=== PATIENT | male | born 1975 ===

== ENCOUNTER 2021-07-11 09:05 | Outpatient (REF) | payer OTHER, SELFPAY ==
--- NOTE | 2021-07-11 09:00 | EEG_ITS ---
Left median and ulnar motor and sensory studies were performed. Left radial sensory study was performed and paraspinal muscles were tested. IMPRESSION: 1. [id number] left median neuropathy across carpal tunnel. 2. Mild left ulnar neuropathy across cubital tunnel. MD MAHENDRA Rossi/MILAGRO / [id number]
== END 2021-07-11 09:06 | disposition home or self-care (01) ==
LOC: HO.NEURO 09:05
PROVIDERS: Visit Provider Internal Medicine
DX: G56.02 Carpal tunnel syndrome, left upper limb (principal)
CPT/HCPCS: 95886; 95909

== ENCOUNTER 2022-04-23 11:44 | Outpatient (REF) | payer MEDICARE, MEDICAID, OTHER, SELFPAY ==
[2022-04-23 14:32] LABS: Alanine Aminotransferase 27 U/L (0-40); Albumin Level 4.7 g/dL (3.5-5.0); Alkaline Phosphatase 40 U/L (39-117); Anion Gap 12 (12-20); Aspartate Amino Transferase 16 U/L (5-37); Bilirubin Total 0.6 mg/dL (0.0-1.0); Blood Urea Nitrogen 17 mg/dL (9-16); Calcium 9.3 mg/dL (8.4-10.2); Carbon Dioxide 26 mmol/L (22-29); Chloride 106 mmol/L (96-108); Cholesterol 222 mg/dL; Estimated Glomerular Filt Rate > 60; Glucose Fasting 87 mg/dL (60-99); HDL Cholesterol 39 mg/dL; LDL Cholesterol Calculated 154 mg/dl; Potassium 4.2 mmol/L (3.3-5.1); Sodium 140 mmol/L (135-145); Total Protein 7.6 g/dL (6.5-8.0); Triglycerides 148 mg/dL
== END 2022-04-23 11:45 | disposition home or self-care (01) ==
LOC: HO.10HDL 11:44
PROVIDERS: Visit Provider Internal Medicine
DX: E78.00 Pure hypercholesterolemia, unspecified (principal); I10 Essential (primary) hypertension; G47.33 Obstructive sleep apnea (adult) (pediatric); Z72.0 Tobacco use; Z91.14 Patient's other noncompliance with medication regimen
CPT/HCPCS: 36415; 80053; 80061

== ENCOUNTER → 2023-03-06 10:22 | Outpatient (BNVA) | payer OTHER, SELFPAY | PROVIDERS: PCP Internal Medicine; Referring Provider Internal Medicine; Visit Provider Surgery | DX: L73.2 Hidradenitis suppurativa (principal) | CPT/HCPCS: 99202 ==

== ENCOUNTER 2023-04-02 09:41 | Outpatient (REF) | payer OTHER, SELFPAY ==
[2023-04-02 12:28] LABS: Alanine Aminotransferase 26 U/L (0-40); Albumin Level 4.4 g/dL (3.5-5.0); Alkaline Phosphatase 36 U/L (39-117); Anion Gap 10 (12-20); Aspartate Amino Transferase 17 U/L (5-37); Bilirubin Total 0.6 mg/dL (0.0-1.0); Blood Urea Nitrogen 17 mg/dL (9-16); Calcium 9.2 mg/dL (8.4-10.2); Carbon Dioxide 24 mmol/L (22-29); Chloride 110 mmol/L (96-108); Estimated Glomerular Filt Rate > 60; Glucose Random 112 mg/dL (60-115); Potassium 3.7 mmol/L (3.3-5.1); Sodium 140 mmol/L (135-145); Total Protein 7.9 g/dL (6.5-8.0)
[2023-04-03 05:37] LABS: HBc Num1 0.08 S/CO (0.00-0.79); HBsAGNum1 0.41 S/CO (0.00-0.99); Hepatitis A Antibody IgM 0.18 Index (0-0.79); Hepatitis B Core Antibody Nonreactive (Nonreactive); Hepatitis B Surface Antigen Negative (Negative); ~HepC Num1 0.08 S/CO (0.00-0.79); ~Hepatitis A Antibody IgM Nonreactive (Nonreactive); ~Hepatitis B Surface Antibody NONREACTIVE (Nonreactive); ~Hepatitis C Antibody Nonreactive (Nonreactive)
== END 2023-04-02 09:42 | disposition home or self-care (01) ==
LOC: HO.10HDL 09:41
PROVIDERS: Visit Provider Internal Medicine
DX: Z00.00 Encounter for general adult medical examination without abnormal findings (principal); I10 Essential (primary) hypertension; M54.50 Low back pain, unspecified; R74.01 Elevation of levels of liver transaminase levels; E78.9 Disorder of lipoprotein metabolism, unspecified
CPT/HCPCS: 36415; 80053; 86704; 86706; 86709; 86803; 87340

== ENCOUNTER → 2023-04-09 09:28 | Outpatient (BNVA) | payer OTHER, SELFPAY | PROVIDERS: PCP Internal Medicine; Visit Provider Surgery | DX: L73.2 Hidradenitis suppurativa (principal) | CPT/HCPCS: 99212 ==

== ENCOUNTER 2023-05-15 09:01 | Outpatient (REF) | payer OTHER, SELFPAY | END 2023-05-15 09:02 | disposition home or self-care (01) | LOC: HO.HOSX 09:01 | PROVIDERS: Visit Provider Orthopaedic Surgery | DX: Z13.89 Encounter for screening for other disorder (principal) ==

== ENCOUNTER 2023-06-11 09:35 | Outpatient (REF) | payer OTHER, SELFPAY ==
--- NOTE | 2023-06-11 09:38 | EMG_ITS ---
Bilateral median and ulnar motor and sensory studies were performed. Bilateral radial sensory studies were performed and paraspinal muscles were tested with a needle. IMPRESSION: Moderately severe bilateral median neuropathy across carpal tunnel. MD MAHENDRA Rossi/MILAGRO / [id number]
== END 2023-06-11 09:36 | disposition home or self-care (01) ==
LOC: HO.NEURO 09:35
PROVIDERS: PCP Internal Medicine; Visit Provider Internal Medicine
DX: G56.03 Carpal tunnel syndrome, bilateral upper limbs (principal); L73.2 Hidradenitis suppurativa
CPT/HCPCS: 95886; 95911; 99212

== ENCOUNTER 2023-06-11 15:01 | Outpatient (AMB) | payer OTHER, SELFPAY ==
--- NOTE | 2023-06-11 15:02 | A.OFFVIS_ITS ---
Intake Vital Signs 06/11/23 15:16 Height 5 ft 11 in Weight 233 lb 11.04 oz BMI 32.6 BP 120/80 Blood Pressure Location Lt brachial Position Sitting Pulse 72 Intake Visit Reasons: hidradenitis suppurativa, left axilla Intake Note: Patient is seen in office for follow up visit, following hidradenitis of the left axilla. Patient c/o: lumps in left axilla where inflamed last week, was given antibiotics has not started them, currently inflammation went down, still has pain, and other lumps around the groin area, is using the hibiclens with no relief Digital Cartographic Technician Required: Yes Digital Cartographic Technician Language: Chinese Language Professor Name: Maricarmen Rosales Information Interpreted: non-clinical & clinical Turbinated Bone Grinder: Turbinated Bone Grinder Present Accompanied by: Self / Same As Patient Allergies No Known Allergies [No Known Allergies*] Allergy (Unverified 06/11/23 15:12) Medication List - Last Reconciled 06/12/23 by John Reed MD chlorhexidine gluconate 4% (Hibiclens) 1 appl topical Q OTHER DAY 2 doses diclofenac sodium 75 mg PO BID duloxetine 60 mg PO DAILY losartan-hydrochlorothiazide 100-25 mg 1 tab PO DAILY metoprolol succinate ER 100 mg PO DAILY mirtazapine 30 mg PO BEDTIME mirtazapine 15 mg PO BEDTIME omeprazole 20 mg PO DAILY prazosin 5 mg PO BEDTIME prazosin 2 mg PO BEDTIME rosuvastatin 40 mg PO DAILY rosuvastatin 20 mg PO DAILY HPI HPI Comments History of Present Illness Details Patient returns for re-evaluation of bilateral axillary hidradenitis. He reports a recent infection in the right axilla which was initially quite painful and red but has subsequently subsided. He continues to feel a tender lump in the axilla but feels it has improved somewhat. He denies any bleeding or discharge from the site. He continues to use the Hibiclens but does not feel that is preventing new infections. He returns for really evaluation. [facility] Medical History High cholesterol HTN (hypertension) Social History Alcohol intake: current Alcohol intake frequency: holidays/special occasions only Alcohol type: beer Patient Tobacco Use Status: Current everyday Tobacco user Tobacco use type: Cigarette Cigarette Packs Per Day: 5 Review of Systems Const All systems reviewed & are unremarkable except as noted in HPI and below Skin/Breast Reports as per HPI and Reports erythema Physical Exam Vital Signs: Last Vital Signs Pulse 72 06/11/23 15:16 BP 120/80 06/11/23 15:16 BMI result Body Mass Index 32.6 Const General: no acute distress and well developed Nutritional Appearance: well nourished Orientation/consciousness: patient oriented x3 Limitations: no limitations Resp Effort & Inspection: normal respiratory effort, no audible wheezes, no cough and no respiratory distress Skin Other: Multiple areas of hidradenitis involving the axilla, inguinal and perianal regions. No significant disease is noted in the perianal skin occurring bilaterally with multiple scars identified from previous infections. No area of erythema or fluctuance is noted at this time. There is tenderness to palpation throughout bilateral buttocks. No active infections are noted in the groin or axilla. Neuro General: patient oriented x3 Extrem General: Yes no clubbing, cyanosis or edema Assessment & Plan Assessment & Plan (1) Hydradenitis: Code(s): L73.2 - Hidradenitis suppurativa Plan 48-year-old male patient presenting with chronic hidradenitis involving bilateral axilla and groins. There are currently no apparent abscess collection s but the patient is still very symptomatic for the recent inflammation. He would benefit from biologic therapy and therefore I recommended Dermatology evaluation. A referral has been sent for dermatology. He should follow up p.r.n.. Orders: Referrals Dermatology Referral L73.2 - Hidradenitis suppurativa Coding Level of Care Code Est Pt Level 3 (22480) Diagnoses Hydradenitis L73.2
[2023-06-11 15:16] VITALS: BP 120/80; PULSE 72; BMI 32.6
== END 2023-06-11 15:20 | disposition home or self-care (01) ==
PROVIDERS: PCP Internal Medicine; Visit Provider Surgery
DX: L73.2 Hidradenitis suppurativa (principal)
CPT/HCPCS: 99213

== ENCOUNTER 2023-06-26 10:34 | Outpatient (REF) | payer OTHER, SELFPAY ==
[2023-06-26 10:56] LABS: MANUAL DIFF FLAG NO
[2023-06-26 11:07] LABS: Basophils Absolute Auto 0.1 X10*3/uL (0.0-0.2); Basophils Percent Auto 0.7 % (0-2); Eosinophils Absolute Auto 0.3 X10*3/uL (0.0-0.4); Eosinophils Percent Auto 3.2 % (0-4); Hematocrit 46.2 % (42.0-52.0); Hemoglobin 15.8 g/dl (14.0-18.0); Imm Gran Abs Auto 0.04 X10*3/uL (0.00-0.03); Imm Gran Pct Auto 0.5 % (0.0-0.4); Lymphocytes Absolute Auto 2.6 X10*3/uL (1.2-4.9); Lymphocytes Percent Auto 31.6 % (20-40); Mean Corpuscular HGB Conc 34.2 g/dl (31.0-36.0); Mean Corpuscular Hemoglobin 31.2 pg (27.0-33.0); Mean Corpuscular Volume 91.3 fL (80.0-98.0); Mean Platelet Volume 10.7 fL (9.4-12.4); Monocytes Absolute Auto 0.7 X10*3/uL (0.1-1.2); Neutrophils Absolute Auto 4.5 x10*3/uL (2.0-8.3); Platelet Count 311 X10*3/uL (160-400); Red Blood Count 5.06 X10*6/uL (4.60-5.80); White Blood Count 8.2 X10*3/uL (4.8-10.8)
[2023-06-26 11:55] LABS: Alanine Aminotransferase 24 U/L (0-40); Albumin Level 4.3 g/dL (3.5-5.0); Alkaline Phosphatase 33 U/L (39-117); Anion Gap 10 (12-20); Aspartate Amino Transferase 17 U/L (5-37); Bilirubin Direct 0.1 mg/dL (0.0-0.5); Bilirubin Total 0.3 mg/dL (0.0-1.0); Blood Urea Nitrogen 14 mg/dL (9-16); Calcium 9.6 mg/dL (8.4-10.2); Carbon Dioxide 26 mmol/L (22-29); Chloride 107 mmol/L (96-108); Cholesterol 159 mg/dL (<200); Estimated Glomerular Filt Rate > 60; Glucose Random 102 mg/dL (60-115); HDL Cholesterol 35 mg/dL (>40); LDL Cholesterol Calculated 95 mg/dL (<100); Potassium 3.8 mmol/L (3.3-5.1); Sodium 139 mmol/L (135-145); Total Protein 7.4 g/dL (6.5-8.0); Triglycerides 146 mg/dL (<150)
[2023-06-27 04:19] LABS: HBS Num1 0.12 mIU/mL (0-7.99); HBc Num1 0.24 S/CO (0.00-0.79); HBsAGNum1 0.37 S/CO (0.00-0.99); Hepatitis B Core Antibody Nonreactive (Nonreactive); Hepatitis B Surface Antigen Negative (Negative); ~HepC Num1 0.06 S/CO (0.00-0.79); ~Hepatitis B Surface Antibody NONREACTIVE (Nonreactive); ~Hepatitis C Antibody Nonreactive (Nonreactive)
[2023-06-29 16:08] LABS: TS Negative Control Passed; TS Panel A 0; TS Panel B 0; TS Positive Control Passed; TSpotTB Negative (Negative)
== END 2023-06-26 10:35 | disposition home or self-care (01) ==
LOC: HO.10HDL 10:34
PROVIDERS: Absent Provider Internal Medicine; Visit Provider Physician Assistant Medical
DX: L73.2 Hidradenitis suppurativa (principal); E78.2 Mixed hyperlipidemia; G47.33 Obstructive sleep apnea (adult) (pediatric); G56.03 Carpal tunnel syndrome, bilateral upper limbs; I10 Essential (primary) hypertension; M25.512 Pain in left shoulder; Z72.0 Tobacco use
CPT/HCPCS: 36415; 80053; 80061; 82248; 85025; 86481; 86704; 86706; 86803; 87340

== ENCOUNTER 2023-07-14 14:24 | Outpatient (AMB) | payer OTHER, SELFPAY ==
--- NOTE | 2023-07-14 14:31 | MHC.OFFVIS ---
Intake Vital Signs 07/14/23 14:39 Height 5 ft 11 in Weight 242 lb BMI 33.7 BP 187/95 H Blood Pressure Location Lt brachial Position Sitting Pulse 97 Intake Visit Reasons: abscess of the buttock Intake Note: Patient is seen in office for follow up visit, following abscess of the buttock. Patient c/o: has an abscess of the buttock starts at the coccyx runs all the way down, was able to empty some of the abscess and it refilled 2 days later, uncomfortable to walk, sit or even use the toilet, currently not on antibiotics, did see a straw hat brusher for the axilla and is schedule to start a new medication Senior International Tax Manager Required: Yes Senior International Tax Manager Language: Dinking Machine Operator Name: Maricarmen LYLES Information Interpreted: non-clinical & clinical Physics Technician: Physics Technician Present Accompanied by: Family/Other Allergies No Known Allergies [No Known Allergies*] Allergy (Unverified 07/14/23 14:32) Medication List - Last Reconciled 07/14/23 by John Reed MD chlorhexidine gluconate 4% (Hibiclens) 1 appl topical Q OTHER DAY 2 doses diclofenac sodium 75 mg PO BID duloxetine 60 mg PO DAILY losartan-hydrochlorothiazide 100-25 mg 1 tab PO DAILY metoprolol succinate ER 100 mg PO DAILY mirtazapine 30 mg PO BEDTIME mirtazapine 15 mg PO BEDTIME omeprazole 20 mg PO DAILY prazosin 5 mg PO BEDTIME prazosin 2 mg PO BEDTIME rosuvastatin 40 mg PO DAILY rosuvastatin 20 mg PO DAILY HPI HPI Comments History of Present Illness Details 48-year-old male patient with previous history of skin abscesses now presenting with a skin abscess of the left buttock. This is been present for at least 2 months and has waxed and waned in pain and swelling. For the past 2 weeks however he has had increased pain and swelling with no discharge noted. He denies fever, chills, nausea or vomiting. He denies previous surgery at this location. He feels he may need an incision and drainage at the site. [facility] Medical History High cholesterol HTN (hypertension) Social History Alcohol intake: current Alcohol intake frequency: holidays/special occasions only Alcohol type: beer Patient Tobacco Use Status: Current everyday Tobacco user Tobacco use type: Cigarette Cigarette Packs Per Day: 5 Review of Systems Const All systems reviewed & are unremarkable except as noted in HPI and below Denies chills, Denies fever(s), Denies headache(s), Denies poor appetite and Denies weakness ENT Denies headache(s) Card Denies chest pain, Denies irregular heart rhythm, Denies palpitations and Denies dyspnea Resp Denies cough, Denies excessive phlegm production and Denies dyspnea GI Denies abdominal pain, Denies bloating, Denies change in bowel habits, Denies constipation, Denies heartburn, Denies diarrhea, Denies nausea and Denies vomiting Denies difficulty urinating and Denies urinary frequency Musc Denies back pain, Denies muscle weakness and Denies numbness Skin/Breast Denies changing lesions and Denies unusual bruising Neuro Denies headache(s), Denies numbness, Denies paresthesias and Denies weakness Psych Denies anxiety and Denies depression Endo Denies palpitations Umesh/Lymph Denies lymphadenopathy Physical Exam Vital Signs: Last Vital Signs Pulse 97 07/14/23 14:39 BP 187/95 H 07/14/23 14:39 BMI result Body Mass Index 33.7 Const General: cooperative and no acute distress Nutritional Appearance: well nourished Orientation/consciousness: patient oriented x3 Limitations: no limitations HEENT Head: Yes normocephalic and Yes atraumatic Ears: hearing grossly normal bilaterally Resp Effort & Inspection: normal respiratory effort, no audible wheezes, no cough and no respiratory distress Cardio Jugular venous distension: no JVD GI Other: Buttock left side with a large area of induration and abscess with fluctuance in the mid medial buttock measuring approximately 2 cm in diameter. Site is tender to palpation. Inspection: Yes normal to inspection Skin Other: Warm, dry, no rash Neuro General: patient oriented x3 Extrem General: Yes no clubbing, cyanosis or edema Office Procedures Incision and Drainage Details: Preoperative diagnosis: Abscess left buttock wall Postoperative diagnosis: Same Procedure: Incision and drainage abscess left buttock Surgeon: John Reed MD Social Media Coordinator: None Anesthesia: Lidocaine 1% with epi Indications for procedure: 48-year-old male with multiple skin cyst presenting with an abscess of the left buttock of several months duration. He reports increased pain and swelling the past week. On examination he was found to a palpable abscess in the medial left buttock Operative findings: Deep abscess in the left buttock Specimen: Wound culture Estimated blood loss: 5 mL Complications: None Procedure details: Patient was placed in a left lateral decubitus position. After assuring informed consent and confirming the site of surgery in the left medial buttock, the skin was prepped with Betadine and draped in a sterile fashion. Local anesthesia was then infiltrated in a transverse fashion over the abscess. An 11 blade was then used to incise the abscess. This was then further widened with a hemostat. Cultures were obtained. Wounds were then irrigated with saline solution. Wound was then packed with quarter-inch Nu Gauze. Dry sterile dressings were then applied. The patient tolerated the procedure well and was discharged to home in stable condition. Assessment & Plan Assessment & Plan (1) Abscess of buttock, left: Code(s): L02.31 - Cutaneous abscess of buttock Plan 48-year-old male patient presenting with an abscess of the left buttock causing pain for the past 2 months. On examination the patient does indeed have a palpable abscess measuring approximately 2 cm in diameter. Incision and drainage was performed today with production of purulent collection. Wound cultures were obtained. He will return in 1 week for wound check. Coding Level of Care Code New Pt Level 4 (50442) Diagnoses Abscess of buttock, left L02.31
[2023-07-14 14:39] VITALS: BP 187/95; PULSE 97; BMI 33.7
== END 2023-07-14 15:09 | disposition home or self-care (01) ==
PROVIDERS: PCP Internal Medicine; Referring Provider Internal Medicine; Visit Provider Surgery
DX: L02.31 Cutaneous abscess of buttock (principal)
CPT/HCPCS: 10060; 99214

== ENCOUNTER 2023-07-14 14:24 | Outpatient (REF) | payer OTHER, SELFPAY | END 2023-07-14 14:25 | disposition home or self-care (01) | LOC: HO.LNP 14:24 | PROVIDERS: PCP Internal Medicine; Referring Provider Internal Medicine; Visit Provider Surgery | DX: L02.31 Cutaneous abscess of buttock (principal) | CPT/HCPCS: 10060; 87070; 87205; 99212 ==

== ENCOUNTER 2023-07-23 08:56 | Outpatient (AMB) | payer OTHER, SELFPAY ==
--- NOTE | 2023-07-23 08:57 | MHC.OFFVIS ---
Intake Vital Signs 07/23/23 08:58 Height 5 ft 11 in Weight 240 lb BMI 33.5 BP 115/72 Blood Pressure Location Lt brachial Position Sitting Pulse 89 Intake Visit Reasons: Follow Up abscess of the buttock Intake Note: This patient of presents for a follow-up assessment status post I&D of abscess of the buttock. Patient c/o; reports draining. Customer Contact Specialist Required: Yes Customer Contact Specialist Language: Crib Pad Maker Name: Shahbaz Information Interpreted: non-clinical & clinical Accompanied by: Self / Same As Patient Allergies No Known Allergies [No Known Allergies*] Allergy (Unverified 07/23/23 09:05) HPI Follow Up abscess of the buttock HPI Details He had undergone I and D of a left buttock abscess by Dr. Reed last 07/21/2023. He is here for wound check He says he feels much better. He denies significant pain. He says he still has a little bit of drainage from the I&D site. [facility] Medical History High cholesterol HTN (hypertension) Social History Alcohol intake: current Alcohol intake frequency: holidays/special occasions only Alcohol type: beer Patient Tobacco Use Status: Current everyday Tobacco user Tobacco use type: Cigarette Cigarette Packs Per Day: 5 Review of Systems Const Denies chills and Denies fever(s) Card Denies chest pain, Denies dyspnea and Denies dyspnea on exertion Resp Denies cough, Denies dyspnea and Denies dyspnea on exertion GI Denies hematochezia and Denies change in bowel habits Denies hematuria and Denies difficulty urinating Musc Denies back pain and Denies limited range of motion Neuro Denies focal weakness and Denies convulsions Psych Denies depression and Denies mood swings Physical Exam Vital Signs: Last Vital Signs Pulse 89 07/23/23 08:58 BP 115/72 07/23/23 08:58 BMI result Body Mass Index 33.5 Const General: comfortable and no acute distress Back/Spine/Pelvis Other: I&D site on the left buttock with minimal residual induration, no fluctuance, no redness scanty discharge from the residual opening Assessment & Plan Assessment & Plan (1) Abscess of buttock, left: Code(s): L02.31 - Cutaneous abscess of buttock Plan: He had an I and D done by Dr. Reed last week. The site appears clean and healing well. The abscess cavity appears to be adequately drained He has completed his antibiotic treatment. He continue with current wound care. He can follow up with us on a p.r.n. basis He is also seeing the tube room cashier for his hidradenitis suppurative and will be started on Humira. Coding Level of Care Code Est Pt Level 2 (08962) Diagnoses Abscess of buttock, left L02.31
[2023-07-23 08:58] VITALS: BP 115/72; PULSE 89; BMI 33.5
== END 2023-07-23 09:17 | disposition home or self-care (01) ==
PROVIDERS: PCP Internal Medicine; Visit Provider Surgery
DX: L02.31 Cutaneous abscess of buttock (principal)
CPT/HCPCS: 99024

== ENCOUNTER → 2023-07-23 08:56 | Outpatient (BNVA) | payer OTHER, SELFPAY | PROVIDERS: PCP Internal Medicine; Visit Provider Surgery | DX: L02.31 Cutaneous abscess of buttock (principal) | CPT/HCPCS: 99212 ==

== ENCOUNTER 2023-10-14 09:42 | Outpatient (REF) | payer OTHER, SELFPAY | END 2023-10-14 09:43 | disposition home or self-care (01) | LOC: HO.LAB 09:42 | PROVIDERS: PCP Internal Medicine; Visit Provider Internal Medicine | DX: Z13.89 Encounter for screening for other disorder (principal) ==

== ENCOUNTER 2023-11-19 10:01 | Outpatient (REF) | payer OTHER, SELFPAY ==
[2023-11-19 10:29] LABS: MANUAL DIFF FLAG NO
[2023-11-19 10:49] LABS: Basophils Percent Auto 0.4 % (0-2); Eosinophils Absolute Auto 0.3 X10*3/uL (0.0-0.4); Eosinophils Percent Auto 2.3 % (0-4); Hematocrit 47.8 % (42.0-52.0); Hemoglobin 16.6 g/dl (14.0-18.0); Imm Gran Abs Auto 0.04 X10*3/uL (0.00-0.03); Imm Gran Pct Auto 0.4 % (0.0-0.4); Lymphocytes Absolute Auto 2.3 X10*3/uL (1.2-4.9); Lymphocytes Percent Auto 20.7 % (20-40); Mean Corpuscular HGB Conc 34.7 g/dl (31.0-36.0); Mean Corpuscular Hemoglobin 31.3 pg (27.0-33.0); Mean Platelet Volume 10.8 fL (9.4-12.4); Monocytes Absolute Auto 1.3 X10*3/uL (0.1-1.2); Monocytes Percent Auto 11.8 % (2-11); Neutrophils Absolute Auto 7.3 x10*3/uL (2.0-8.3); Neutrophils Percent Auto 64.4 % (45-73); Platelet Count 286 X10*3/uL (160-400); Red Blood Count 5.31 X10*6/uL (4.60-5.80); Red Cell Distribution Width 12.1 % (11.0-16.0); White Blood Count 11.3 X10*3/uL (4.8-10.8)
[2023-11-19 11:18] LABS: Alanine Aminotransferase 26 U/L (0-40); Albumin Level 4.5 g/dL (3.5-5.0); Alkaline Phosphatase 38 U/L (39-117); Anion Gap 12 (12-20); Aspartate Amino Transferase 18 U/L (5-37); Blood Urea Nitrogen 13 mg/dL (9-16); Calcium 10.1 mg/dL (8.4-10.2); Carbon Dioxide 28 mmol/L (22-29); Chloride 98 mmol/L (96-108); Cholesterol 155 mg/dL (<200); Estimated Glomerular Filt Rate > 60; Glucose Random 105 mg/dL (60-115); HDL Cholesterol 34 mg/dL (>40); LDL Cholesterol Calculated 96 mg/dL (<100); Potassium 3.4 mmol/L (3.3-5.1); Sodium 135 mmol/L (135-145); Total Protein 8.3 g/dL (6.5-8.0); Triglycerides 127 mg/dL (<150)
== END 2023-11-19 10:02 | disposition home or self-care (01) ==
LOC: HO.LAB 10:01
PROVIDERS: PCP Internal Medicine; Visit Provider Internal Medicine
DX: E78.2 Mixed hyperlipidemia (principal); G47.33 Obstructive sleep apnea (adult) (pediatric); G56.03 Carpal tunnel syndrome, bilateral upper limbs; I10 Essential (primary) hypertension; L73.2 Hidradenitis suppurativa; M25.512 Pain in left shoulder; Z72.0 Tobacco use
CPT/HCPCS: 36415; 80053; 80061; 85025

== ENCOUNTER 2024-02-12 10:17 | Outpatient (AMB) | payer OTHER, SELFPAY ==
--- NOTE | 2024-02-12 10:23 | MHC.OFFVIS ---
Vital Signs 02/12/24 10:29 Height 5 ft 11 in Weight 240 lb BMI 33.5 BP 135/86 Blood Pressure Location Lt brachial Position Sitting Pulse 114 H Intake Visit Reasons: recurrent abscess of the buttock Intake Note: Patient is seen in office for recurrent abscess of the buttock. Pt c/o: continued abscess of the buttock, was I&D last visit and 2 days later filled back up with fluid, feels there is a lump inside that needs to be removed, has another one in the left armpit, is red and inflamed, and another in the groin area, is schedule to see a Licensed Funeral Director 03/17/24 Nutrition Services Aide Required: Yes Nutrition Services Aide Language: Alumina Plant Supervisor Name: Maricarmen LYLES Information Interpreted: non-clinical & clinical Manager Of Allied Health Services: Manager Of Allied Health Services Present Accompanied by: Self / Same As Patient Allergies No Known Allergies [No Known Allergies*] Allergy (Unverified 02/12/24 10:29) Medication List - Last Reconciled 02/12/24 by John Reed MD chlorhexidine gluconate 4% (Hibiclens) 1 appl topical Q OTHER DAY 2 doses diclofenac sodium 75 mg PO BID duloxetine 60 mg PO DAILY losartan-hydrochlorothiazide 100-25 mg 1 tab PO DAILY metoprolol succinate ER 100 mg PO DAILY mirtazapine 30 mg PO BEDTIME mirtazapine 15 mg PO BEDTIME omeprazole 20 mg PO DAILY prazosin 5 mg PO BEDTIME prazosin 2 mg PO BEDTIME rosuvastatin 40 mg PO DAILY rosuvastatin 20 mg PO DAILY HPI Comments Details: Patient presents with multiple cutaneous skin lesions including his left axilla, bilateral groins, buttocks and perineal skin. He is able to squeeze the lesion in the axilla and buttock to produce some cloudy fluid. He denies any fever or chills. He previously underwent incision and drainage of the buttock lesion and a quickly returned. He is due to see dermatology (Dr. Larry) soon and has been using the Hibiclens scrub with mixed results. [facility] Medical History High cholesterol HTN (hypertension) Social History Alcohol intake: current Alcohol intake frequency: holidays/special occasions only Alcohol type: beer Patient Tobacco Use Status: Current everyday Tobacco user Tobacco use type: Cigarette Cigarette Packs Per Day: 5 Review of Systems Const All systems reviewed & are unremarkable except as noted in HPI and below Denies chills, Denies fever(s), Denies headache(s), Denies poor appetite and Denies weakness ENT Denies headache(s) Card Denies chest pain, Denies irregular heart rhythm, Denies palpitations and Denies dyspnea Resp Denies cough, Denies excessive phlegm production and Denies dyspnea GI Denies abdominal pain, Denies bloating, Denies change in bowel habits, Denies constipation, Denies heartburn, Denies diarrhea, Denies nausea and Denies vomiting Denies difficulty urinating and Denies urinary frequency Musc Denies back pain, Denies muscle weakness and Denies numbness Skin/Breast Denies changing lesions and Denies unusual bruising Neuro Denies headache(s), Denies numbness, Denies paresthesias and Denies weakness Psych Denies anxiety and Denies depression Endo Denies palpitations Umesh/Lymph Denies lymphadenopathy Physical Exam Vital Signs: Last Vital Signs Pulse 114 H 02/12/24 10:29 BP 135/86 02/12/24 10:29 BMI result Body Mass Index 33.5 Const General: cooperative and no acute distress Nutritional Appearance: well nourished Orientation/consciousness: patient oriented x3 Limitations: no limitations HEENT Head: Yes normocephalic and Yes atraumatic Ears: hearing grossly normal bilaterally Chest Other: Left axilla with 2 areas of previous incision and drainage with no erythema appreciated. There is some chronic inflammation noted with underlying phlegmon. No definite abscess appreciated. Resp Effort & Inspection: normal respiratory effort, no audible wheezes, no cough and no respiratory distress Cardio Jugular venous distension: no JVD GI Other: Left buttock with a prior incision and drainage with palpable inflammation below the skin. There is diffuse skin changes noted throughout the buttock and perineum and groin suggestive of hidradenitis. No definite abscess noted at this time and no skin erythema appreciated. Inspection: Yes normal to inspection Skin Other: As noted in GI above. Neuro General: patient oriented x3 Extrem General: Yes no clubbing, cyanosis or edema Assessment & Plan Assessment & Plan (1) Abscess of buttock, left: Code(s): L02.31 - Cutaneous abscess of buttock Category: Medical (2) Hydradenitis: Code(s): L73.2 - Hidradenitis suppurativa Category: Medical Plan 49-year-old male patient presenting with evidence of hidradenitis in multiple locations and diffuse skin changes which may best be treated by Dermatology. I recommended proceeding to the Dermatology evaluation with follow-up based on their recommendations. Coding Level of Care Code Est Pt Level 3 (40749) Diagnoses Abscess of buttock, left L02.31 Hydradenitis L73.2
[2024-02-12 10:29] VITALS: BP 135/86; PULSE 114; BMI 33.5
== END 2024-02-12 10:39 | disposition home or self-care (01) ==
PROVIDERS: PCP Internal Medicine; Visit Provider Surgery
DX: L02.31 Cutaneous abscess of buttock (principal); L73.2 Hidradenitis suppurativa
CPT/HCPCS: 99213

== ENCOUNTER → 2024-02-12 10:17 | Outpatient (BNVA) | payer OTHER, SELFPAY | PROVIDERS: PCP Internal Medicine; Visit Provider Surgery | DX: L02.31 Cutaneous abscess of buttock (principal); L73.2 Hidradenitis suppurativa; Z98.890 Other specified postprocedural states | CPT/HCPCS: 99212 ==

== ENCOUNTER 2024-03-17 10:55 | Emergency (ER) | payer OTHER, SELFPAY ==
--- NOTE | ~2024-03-17 | CT_ITS ---
EXAMINATION: CT ABDOMEN AND PELVIS WITH CONTRAST CLINICAL INFORMATION: Right groin abscess, buttock abscess, hematuria. COMPARISON: None available. TECHNIQUE: Multidetector volumetric images were obtained from the superior aspect of the liver through the pubic symphysis following administration 85 mL of Omnipaque 350 intravenous contrast. Sagittal and coronal reformatted images were obtained on the technologist's workstation. Oral contrast: No This CT examination was performed using dose optimization techniques as appropriate, variously including the following: *Automated exposure control *Adjustment of mA and/or kV according to patient size (this includes techniques or standardized protocols for targeted exams where dose is matched to indication/reason for exam; i.e. extremities or head) *Use of iterative reconstruction technique DLP: 750 mGy-cm FINDINGS: LUNG BASES: The visualized lung bases are unremarkable. LIVER, GALLBLADDER, AND BILIARY TREE: Multiple too small to characterize liver hypodensities, the majority not significantly changed compared to 05/20/2021, although a hypodensity in the caudate lobe (3:23) was not definitely seen previously. Liver is normal in size, morphology and density. Redemonstration of a punctate calcification in the right hepatic lobe. Hyperdense gallbladder sludge/stones. No evidence of gallbladder wall thickening nor significant pericholecystic inflammatory changes. No biliary ductal dilatation. PANCREAS: Stable punctate calcification in the pancreatic tail. No main ductal dilatation. No peripancreatic inflammatory changes.. SPLEEN: Unremarkable. ADRENAL GLANDS: Unremarkable. KIDNEYS AND URETERS: The kidneys are normal in size, shape, and attenuation. No hydronephrosis, hydroureter, or calculi seen. No perinephric stranding. BLADDER: Unremarkable. GASTROINTESTINAL TRACT: The stomach and the small bowel are nondilated. Normal appendix. Mild colonic diverticulosis without significant pericolonic inflammatory changes. No evidence of bowel obstruction. ABDOMINAL WALL: No significant hernia is appreciated. LYMPH NODES: Borderline enlarged periportal and retroperitoneal lymph nodes are stable. Pelvic and inguinal lymphadenopathy is slightly increased compared to 05/20/2021. Unchanged mild fatty haziness of the central small bowel mesentery. VASCULAR: Normal caliber of the abdominal aorta. PELVIC VISCERA: There is a 5.3 x 1.9 cm rim enhancing centrally low density collection in the superficial soft tissues of the left intergluteal region (3:99) with mild surrounding fat stranding most consistent with an abscess. Bilateral scrotal sac anasarca/edema. OSSEOUS STRUCTURES: Degenerative changes of the spine. No acute or aggressive appearing osseous findings. CT/CT abdomen pelvis w IV con IMPRESSION: 1. There is a 5.3 cm rim enhancing centrally low density collection in the superficial soft tissues of the left intergluteal region with mild surrounding fat stranding most consistent with an abscess. Recommend clinical correlation and attention on follow-up to ensure resolution. 2. Multiple too small to characterize liver hypodensities, the majority of which are not significantly changed compared to 05/20/2021, although a hypodensity in the caudate lobe was not definitely seen previously. Statistically, these are favored to represent cysts or hemangiomas, however definite characterization with an outpatient abdominal MRI with and without IV contrast is recommended, 3. Cholelithiasis but no evidence of acute cholecystitis. 4. Diverticulosis but no evidence of acute diverticulitis. 5. Bilateral scrotal sac anasarca/edema, correlate with physical examination. 6. Increased size of pelvic and inguinal lymph nodes, most likely reactive in nature. Recommend attention follow-up in future examinations.
[2024-03-17 11:11] VITALS: BP 141/82; PULSE 78; RESP 18; TEMP 36.6; O2SAT 98; BMI 34.2
--- NOTE | 2024-03-17 11:11 | ED.SKABFB ---
HPI - Skin/Abscess/Foreign Bdy General Chief complaint: Wound/Laceration Stated complaint: Sent by Dr High abscess Time Seen by Provider: 03/17/24 12:17 Source: patient and RN notes reviewed Mode of arrival: ambulatory Limitations: no limitations History of Present Illness ED Provider: Ana Luisa Elder PA-C HPI narrative: This is a 49-year-old male, with a history of recurrent abscesses on buttocks and groin, hypertension and hyperlipidemia, who presents emergency department with complaints of right groin swelling and left buttocks swelling. Patient states that yesterday he noticed increased swelling in his right groin and states that this area started to drain yesterday. He states that this has happened to him in the past. However he woke up this morning and noticed right testicular pain and swelling. He endorses subjective and chills. Was seen by Dr. Breen surgeon beginning of February, who referred him to dermatology due to recurrent abscesses, there has no abscess appreciated at that time. He states that he has had multiple incisions and drainage procedures performed over the years due to recurrent abscesses. He is sexually active with his partner, no concerns for any sexually transmitted infections. He does endorse blood in his urine which she just noticed this afternoon. No urinary urgency or frequency. No other complaints or concerns this time MD complaint: abscess/boil Onset (ago): day(s) Tetanus up to date: unsure Relieving factors: none Exacerbating factors: none Context: none Associated symptoms: fever (Subjective) and chills Treatments prior to arrival: none Related Data Home Medications ?Medication ?Instructions ?Recorded ?Confirmed diclofenac sodium 75 mg 75 mg PO BID 04/09/23 03/29/24 tablet,delayed release duloxetine 60 mg capsule,delayed 60 mg PO DAILY 04/09/23 03/29/24 release losartan 100 1 tab PO DAILY 04/09/23 03/29/24 mg-hydrochlorothiazide 25 mg tablet metoprolol succinate 100 mg 100 mg PO DAILY 04/09/23 03/29/24 tablet,extended release 24 hr mirtazapine 15 mg tablet 15 mg PO BEDTIME depressive 04/09/23 03/29/24 disorder mirtazapine 30 mg tablet 30 mg PO BEDTIME 04/09/23 03/29/24 omeprazole 20 mg capsule,delayed 20 mg PO DAILY 04/09/23 03/29/24 release prazosin 2 mg capsule 2 mg PO BEDTIME 04/09/23 03/29/24 prazosin 5 mg capsule 5 mg PO BEDTIME 04/09/23 03/29/24 rosuvastatin 20 mg tablet 20 mg PO DAILY 04/09/23 03/29/24 rosuvastatin 40 mg tablet 40 mg PO DAILY 04/09/23 03/29/24 Previous Rx's ?Medication ?Instructions ?Recorded chlorhexidine gluconate 4 % 1 appl topical Q OTHER DAY 2 doses 03/06/23 topical liquid (Hibiclens) #3,800 mL amoxicillin 875 mg-potassium 1 tab PO BID 10 days #20 tabs 03/17/24 clavulanate 125 mg tablet Allergies Allergy/AdvReac Type Severity Reaction Status Date / Time No Known Allergies Allergy Verified 03/29/24 11:44 [No Known Allergies*] Review of Systems Review of Systems: Yes all other systems are reviewed and are negative Constitutional: Constitutional: Reports as per [facility] Past Medical History Medical History High cholesterol HTN (hypertension) Social History Social History Alcohol intake: current Alcohol intake frequency: holidays/special occasions only Alcohol type: beer Patient Tobacco Use Status: Current everyday Tobacco user Tobacco use type: Cigarette Cigarette Packs Per Day: 5 Physical Exam Vital Signs: Vital Signs: Last Vital Signs Temp 98.5 F 03/17/24 22:22 Pulse 73 03/17/24 22:22 Resp 18 03/17/24 22:22 BP 131/67 03/17/24 22:22 Pulse Ox 97 03/17/24 22:22 O2 Del Method Room Air 03/17/24 22:22 BMI result Body Mass Index 34.2 Const: General: cooperative, comfortable and no acute distress Orientation/consciousness: patient oriented x3 Limitations: no limitations HEENT: Head: Yes normal to inspection, Yes normocephalic and Yes atraumatic Ears: hearing grossly normal bilaterally General nose exam: Normal external nose present Face and sinus: Yes normal facial exam Mouth: Normal oral and palatal mucosa present, oropharynx normal and moist mucous membranes Throat: Yes posterior oropharynx normal Eyes: General: appearance normal, both eyes and all related structures Eyelids: Yes eyelids normal Conjunctivae: conjunctivae normal Sclerae: sclerae normal Pupils: Equal, round and reactive pupils present EOM: EOMs intact bilaterally Neck: Neck: Yes normal visual inspection, Yes full ROM and Yes no lymphadenopathy Lymphatic: no lymphadenopathy noted Chest: Chest palpation & inspection: normal inspection of the chest Resp: Effort & Inspection: normal respiratory effort and able to speak in complete sentences Auscultation: clear to auscultation bilaterally, no crackles, no rales, no rhonchi and no wheezes Cardio: Rate: regular rate Rhythm: regular rhythm Heart sounds: S1 normal heart sound present and S2 normal heart sound present GI: Inspection: Yes normal to inspection : Other: examination performed with Tech present at all times. Penile and scrotal edema noted, mild inrudation on the right, nontender, no overlying erythema or warmth. No palpable mass or abscess appreciated. Skin: Other: Left buttocks with 4 x 4 cm tender fluctuant mass noted, no surrounding erythema or warmth noted. General skin exam: no rashes or lesions noted Trauma: no lacerations or abrasions Wounds: no wounds Neuro: General: patient oriented x3 and moves all extremities Cranial nerves: Yes Equal, round and reactive pupils present Extrem: General: Yes normal to inspection Right upper extremity: normal to inspection Left upper extremity: normal to inspection Right lower extremity: normal to inspection Left lower extremity: normal to inspection Course Course Course Narrative: This is a Rapid Medical Examination (RME) performed by Leigh Betancourt PA-C in triage. Full HPI, ROS, assessment and treatment plan per primary provider in the Main ED. 49 yo male, hx of HTN, HDL, and chronic left buttock abscess here for eval of abscess to left buttock x years. He currently follows with Dr. Reed for this with multiple I&Ds. Last seen on 02/12/24. Reports increasing pain to the area which began this morning, prompting him to come in for eval. also endorses abscess to right groin, drained yesterday, now increasingly swollen. admits to subjective fevers. afebrile in triage. exam limited in triage d/t patient being clothed along with privacy concerns. plan for further physical examination once patient is pulled back to an ED bed. Plan: basic labs & UA ordered. Reevaluation(s) Reevaluation #1: CT returns, revealing a 5.3 cm rim enhancing centrally low-density collection in the superficial soft tissues of the left intra uterine region with mild surrounding fat stranding most consistent with an abscess. There also liver hypodensities not significantly changed since May 31, 2021 however there is a hypodensity in the caudate lobe that was not seen previously, favored to represent sister hemangiomas however will likely need abdominal MRI with and without IV contrast outpatient. Cholelithiasis without cholecystitis, diverticulo cyst without diverticulitis there is bilateral scrotal sac anasarca/edema as well as increased size of pelvic and inguinal lymph nodes most likely reactive in nature. Time: 18:13 Reevaluation #2: Incision and drainage was performed, I reviewed this case with tor, who came and evaluated patient. No additional escalation needed at this time. Will discharge on Augmentin per my supervising physician's request, updated tetanus in department. Patient advised to return in 72 hours for wound check. He understands agrees with plan. Given return precautions as well as updated tetanus. Reviewed CT scan findings with patient. Patient stable for discharge Time: 20:54 Reevaluation #3: I examined this patient before the incision and drainage procedure was done. Primarily I was examining the patient is genitalia. There is some mild penile and scrotal edema. There was some induration of the most inferior portion of the scrotum on the right side near the perineum but there was no tenderness or fluctuance. Overall the scrotum seemed benign aside from some mild edema. I recommended that the perianal abscess be drained and that the patient be discharged on Augmentin. I think the patient can follow up with Urology regarding the penile and scrotal edema. Dequan Schafer Medications Administered Discontinued Medications Generic Name Dose Route Start Last Admin Trade Name Freq PRN Reason Stop Dose Admin Amoxicillin/Clavulanate Potassium 875 mg 03/17/24 20:44 03/17/24 21:38 Amoxicillin/Potassium Clav 875 Mg Tablet PO 03/17/24 20:45 875 mg ONCE ONE Administration Diphtheria/Tetanus/Acell Pertussis 0.5 ml 03/17/24 20:44 03/17/24 21:39 Diphth,Pertus(Acell),Tet Adult 0.5 Ml Syringe IM 03/17/24 20:45 0.5 ml .ONCE ONE Administration Sodium Chloride 1,000 mls @ 999 mls/hr 03/17/24 14:12 03/17/24 16:53 Ns IV 03/17/24 15:12 Infused .Q1H1M ONE Infusion Iohexol 100 ml 03/17/24 15:24 03/17/24 15:25 Iohexol 350 Mg/Ml 100 Ml Infus..Btl IV 03/17/24 15:25 85 ml ONCE ONE Administration Lidocaine HCl 5 ml 03/17/24 19:08 03/17/24 21:39 Lidocaine Hcl 1 % Mpf 5 Ml Vial INFILTRATI 03/17/24 19:09 5 ml ONCE ONE Administration Medical Decision Making Medical Decision Making MDM Narrative: This is a 49-year-old male presents emergency department with recurrent abscesses. He states that he noticed right testicular swelling as well as erythema which started this morning. He also has an abscess on his left buttocks. On arrival, blood pressure mildly elevated, he is afebrile under no acute distress. Labs were obtained prior to my assessment, he has slight leukocytosis at 12, chemistry within normal limits, UA revealing moderate blood, rbc's. examination performed, he does have scant erythema noted to his right and left testicle, which is tender. Also has a left buttocks abscess noted. He has a history of recurrent abscesses and has been seen by Dr. Reed in the past - last visit on 02/12/2024 where no obvious abscess was noted on his left buttocks. Plan: Labs, UA, Differential Diagnosis Differential Diagnoses: The differential diagnosis associated with the presentation includes Abscess, cyst, Lab Data [facility] Lab Attestation statement: I reviewed the patient's lab results. Slight leukocytosis, stable H&H, chemistry within normal limits. Hematuria noted with 2+ blood, rbc's 11-20. 03/17/24 11:26 03/17/24 11:26 Labs: Lab Results 03/17/24 03/17/24 Range/Units 11:26 11:32 WBC 12.0 H (4.8-10.8) X10*3/uL RBC 5.15 (4.60-5.80) X10*6/uL Hgb 16.2 (14.0-18.0) g/dl Hct 46.4 (42.0-52.0) % MCV 90.1 (80.0-98.0) fL MCH 31.5 (27.0-33.0) pg MCHC 34.9 (31.0-36.0) g/dl RDW 12.9 (11.0-16.0) % Plt Count 266 (160-400) X10*3/uL MPV 10.7 (9.4-12.4) fL Immature Gran % (Auto) 0.3 (0.0-0.4) % Neut % (Auto) 67.2 (45-73) % Lymph % (Auto) 20.4 (20-40) % [place] % (Auto) 9.4 (2-11) % Eos % (Auto) 2.2 (0-4) % Baso % (Auto) 0.5 (0-2) % Lymph # (Auto) 2.4 (1.2-4.9) X10*3/uL [place] # (Auto) 1.1 (0.1-1.2) X10*3/uL Eos # (Auto) 0.3 (0.0-0.4) X10*3/uL Baso # (Auto) 0.1 (0.0-0.2) X10*3/uL Abs Immat Gran (auto) 0.03 (0.00-0.03) X10*3/uL Absolute Neuts (auto) 8.1 (2.0-8.3) x10*3/uL Absolute Nucleated RBC 0.000 (0.0-0.012) X10*3/uL Nucleated RBC % (auto) 0.0 (0.0-0.2) /100WBC Sodium 142 (135-145) mmol/L Potassium 3.8 (3.3-5.1) mmol/L Chloride 104 (96-108) mmol/L Carbon Dioxide 28 (22-29) mmol/L Anion Gap 14 (12-20) BUN 12 (9-16) mg/dL Creatinine 0.84 (0.5-1.4) mg/dL Estim Creat Clear Calc 133.3 Estimated GFR > 60 Random Glucose 111 (60-115) mg/dL Calcium 9.5 (8.4-10.2) mg/dL Magnesium 2.0 (1.6-2.6) mg/dL Total Bilirubin 0.7 (0.0-1.0) mg/dL AST 20 (5-37) U/L ALT 29 (0-40) U/L Alkaline Phosphatase 39 (39-117) U/L Total Protein 7.8 (6.5-8.0) g/dL Albumin 4.3 (3.5-5.0) g/dL Lipase 19 (8-78) U/L Urine Color Dark Yellow Urine Appearance Clear Urine pH 5.5 (5.0-9.0) Ur Specific [place] >= 1.030 H (1.005-1.025) Urine Protein Trace (Neg-Trace) mg/dL Urine Glucose (UA) Negative (Negative) mg/dL Urine Ketones Trace (Negative) mg/dL Urine Blood Moderate (2+) H (Negative) Urine Nitrite Negative (Negative) Ur Leukocyte Esterase Negative (Negative) Urine RBC 11-20 H (0-2) /HPF Urine WBC 0-5 (0-5) /HPF Ur Squamous Epith Cells 0-2 (0-2) /HPF Urine Bacteria None Seen (None Seen) Hyaline Casts 0-2 (0-2) /LPF Radiology Impression Discussion of test interpretation with radiology: I have reviewed the radiologist's reading. External Record Review External record reviewed: Inpatient record, Office record, Outpatient record, Prior outpatient labs, Prior outpatient radiology, Primary care record and Outside ED record Discharge Plan Discharge Clinical Impression: Abscess, Abnormal finding on CT scan Patient Disposition: Home, Self-Care Instructions: Abscess (ED), Abscess Follow-up (ED), Incision and Drainage (ED) Additional Instructions: You were seen in the emergency department due to an abscess. Your blood work was reassuring We had to excise and drain this abscess. Please take prescribed antibiotic as directed. Finish the entire course even if your feeling better. Please return in 48-72 hours for a wound check. We placed a wick in this area, if this falls out that is okay you do not need to return. If any new or worsening symptoms occur including to worsening pain, swelling, fevers, chills, please return for re-evaluation. Please follow-up with your surgeon, Dr. Christine regarding this visit. Your CT scan shows some abnormality seen on your liver. This is similar to 202 however there is 1 area that was not seen previously. You need to follow-up with your primary care physician to have a abdominal MRI with and without IV contrast for further evaluation of these regions. Your CT scan also shows evidence of diverticulosis as well as cholelithiasis. These are incidental findings. Prescriptions: New amoxicillin-pot clavulanate 875-125 mg tablet 1 tab PO BID 10 Days Qty: 20 0RF No Action chlorhexidine gluconate [Hibiclens] 4 % liquid 1 appl topical Q OTHER DAY Qty: 3800 3RF Rx Instructions: Apply in shower, lather entire body and leave on for 2 minutes prior to washing off. Recommend 3-4 times weekly. prazosin 5 mg capsule 5 mg PO BEDTIME duloxetine 60 mg capsule,delayed release(DR/EC) 60 mg PO DAILY diclofenac sodium 75 mg tablet,delayed release (DR/EC) 75 mg PO BID metoprolol succinate 100 mg tablet extended release 24 hr 100 mg PO DAILY rosuvastatin 40 mg tablet 40 mg PO DAILY losartan-hydrochlorothiazide 100-25 mg tablet 1 tab PO DAILY omeprazole 20 mg capsule,delayed release(DR/EC) 20 mg PO DAILY mirtazapine 30 mg tablet 30 mg PO BEDTIME prazosin 2 mg capsule 2 mg PO BEDTIME mirtazapine 15 mg tablet 15 mg PO BEDTIME rosuvastatin 20 mg tablet 20 mg PO DAILY Interventions: ED Discharge Assessment Last Done: 03/17/24 22:22 Discharge Date/Time: 03/17/24 21:50 Print Language: Nepali
[2024-03-17 11:31] LABS: MANUAL DIFF FLAG NO
[2024-03-17 11:34] LABS: Basophils Absolute Auto 0.1 X10*3/uL (0.0-0.2); Basophils Percent Auto 0.5 % (0-2); Eosinophils Absolute Auto 0.3 X10*3/uL (0.0-0.4); Eosinophils Percent Auto 2.2 % (0-4); Hematocrit 46.4 % (42.0-52.0); Hemoglobin 16.2 g/dl (14.0-18.0); Imm Gran Abs Auto 0.03 X10*3/uL (0.00-0.03); Imm Gran Pct Auto 0.3 % (0.0-0.4); Lymphocytes Absolute Auto 2.4 X10*3/uL (1.2-4.9); Lymphocytes Percent Auto 20.4 % (20-40); Mean Corpuscular HGB Conc 34.9 g/dl (31.0-36.0); Mean Corpuscular Hemoglobin 31.5 pg (27.0-33.0); Mean Corpuscular Volume 90.1 fL (80.0-98.0); Mean Platelet Volume 10.7 fL (9.4-12.4); Monocytes Absolute Auto 1.1 X10*3/uL (0.1-1.2); Monocytes Percent Auto 9.4 % (2-11); Neutrophils Absolute Auto 8.1 x10*3/uL (2.0-8.3); Neutrophils Percent Auto 67.2 % (45-73); Platelet Count 266 X10*3/uL (160-400); Red Blood Count 5.15 X10*6/uL (4.60-5.80); Red Cell Distribution Width 12.9 % (11.0-16.0)
[2024-03-17 11:50] LABS: Alanine Aminotransferase 29 U/L (0-40); Albumin Level 4.3 g/dL (3.5-5.0); Alkaline Phosphatase 39 U/L (39-117); Anion Gap 14 (12-20); Aspartate Amino Transferase 20 U/L (5-37); Bilirubin Total 0.7 mg/dL (0.0-1.0); Blood Urea Nitrogen 12 mg/dL (9-16); Calcium 9.5 mg/dL (8.4-10.2); Carbon Dioxide 28 mmol/L (22-29); Chloride 104 mmol/L (96-108); Creatinine Clr Calc Pharmacy 133.3; Estimated Glomerular Filt Rate > 60; Glucose Random 111 mg/dL (60-115); Lipase 19 U/L (8-78); Potassium 3.8 mmol/L (3.3-5.1); Sodium 142 mmol/L (135-145); Total Protein 7.8 g/dL (6.5-8.0)
[2024-03-17 11:56] LABS: Appearance Urine Clear; Color Urine Dark Yellow; Glucose Urine UA Negative (Negative); Leukocyte Esterase Urine Negative (Negative); Nitrite Urine Negative (Negative); PH 5.5 (5.0-9.0); Specific Gravity - Urine >= 1.030 (1.005-1.025); UMIC TRIGGER UACC YES; Urine Blood Moderate (2+) (Negative); Urine Ketones Trace mg/dL (Negative); Urine Protein Trace mg/dL (Neg-Trace)
[2024-03-17 11:59] LABS: Bacteria Urine None Seen (None Seen); Hyaline Casts Urine 0-2 /LPF (0-2); Squamous Epithelial Cell Urine 0-2 /HPF (0-2); WBC Urine 0-5 /HPF (0-5)
[2024-03-17] MEDS: 0.9 % Sodium Chloride 1,000 ML 999 ML IV (15:14)
[2024-03-17] MEDS: iohexoL 350 MG/ML 100 ML INFUS..BTL IV (15:25)
[2024-03-17 16:28] VITALS: BP 122/64; PULSE 65; RESP 18; TEMP 36.9; O2SAT 98
[2024-03-17 18:56] VITALS: BP 125/81; PULSE 77; RESP 17; TEMP 36.8; O2SAT 99
[2024-03-17] MEDS: Amoxicillin/Potassium Clav 875 MG TABLET PO (21:38)
[2024-03-17] MEDS: Lidocaine HCl 1 % MPF 5 ML VIAL INFILTRATI (21:39)
[2024-03-17] MEDS: Diphth,Pertus(ACell),Tet Adult 0.5 ML SYRINGE IM (21:39)
[2024-03-17 22:22] VITALS: BP 131/67; PULSE 73; RESP 18; TEMP 36.9; O2SAT 97
== END 2024-03-17 21:50 | disposition home or self-care (01) ==
PROVIDERS: Physician Assistant Medical; Emergency Provider Emergency Medicine; PCP Internal Medicine
DX: S31.821A Laceration without foreign body of left buttock, initial encounter (principal); L02.31 Cutaneous abscess of buttock; R10.30 Lower abdominal pain, unspecified; N50.812 Left testicular pain; N50.811 Right testicular pain; R11.0 Nausea; M54.2 Cervicalgia; X58.XXXA Exposure to other specified factors, initial encounter; Y93.9 Activity, unspecified; Y92.9 Unspecified place or not applicable; Y99.8 Other external cause status; Z79.899 Other long term (current) drug therapy; Z23 Encounter for immunization
CPT/HCPCS: 10060; 36415; 74177; 80053; 81001; 83690; 83735; 85025; 87040; 90471; 90715; 96360; 96361; 99284; Q9967

== ENCOUNTER 2024-03-29 11:33 | Outpatient (AMB) | payer OTHER, SELFPAY ==
--- NOTE | 2024-03-29 11:35 | MHC.OFFVIS ---
Vital Signs 03/29/24 11:44 Height 5 ft 11 in Weight 245 lb 5.992 oz BMI 34.2 BP 114/78 Blood Pressure Location Lt brachial Position Sitting Pulse 99 Pulse Source Palpation Intake Visit Reasons: recurrent abscess buttock and groin Intake Note: Patient is seen in office for follow up visit, following on recurrent abscess on buttock. Pt c/o: seen in ED on 03/17/24 for buttock abscess, currently not draining but has a hard lump, had CT scan done, all done with antbx, cyst on the right groin has drain and would like Dr to have a look at it due to flaring up again Allergies No Known Allergies [No Known Allergies*] Allergy (Verified 03/29/24 11:44) Medication List - Last Reconciled 03/29/24 by John Reed MD amoxicillin-pot clavulanate 875-125 mg 1 tab PO BID 10 days chlorhexidine gluconate 4% (Hibiclens) 1 appl topical Q OTHER DAY 2 doses diclofenac sodium 75 mg PO BID duloxetine 60 mg PO DAILY losartan-hydrochlorothiazide 100-25 mg 1 tab PO DAILY metoprolol succinate ER 100 mg PO DAILY mirtazapine 30 mg PO BEDTIME mirtazapine 15 mg PO BEDTIME omeprazole 20 mg PO DAILY prazosin 5 mg PO BEDTIME prazosin 2 mg PO BEDTIME rosuvastatin 40 mg PO DAILY rosuvastatin 20 mg PO DAILY HPI Comments Details: Patient returns for follow-up examination with complaints of swelling in the upper right leg and right scrotal sac. He recently developed an infection in the buttock which was evaluated emergency department earlier this month. This has now resolved after taking antibiotics. He is also being followed by Dermatology and started on biologic therapy for the hidradenitis. He was initially on Humira but is now on a new medication. He reports that if this medication does not work he will be referred to [facility] for additional therapy. Currently denies any active infection, bleeding or discharge. Both axillary and groin wounds are stable at this time. REPLACED BY [facility] Medical History High cholesterol HTN (hypertension) Social History Alcohol intake: current Alcohol intake frequency: holidays/special occasions only Alcohol type: beer Patient Tobacco Use Status: Current everyday Tobacco user Tobacco use type: Cigarette Cigarette Packs Per Day: 5 Review of Systems Const All systems reviewed & are unremarkable except as noted in HPI and below Denies chills, Denies fever(s), Denies headache(s), Denies poor appetite and Denies weakness ENT Denies headache(s) Card Denies chest pain, Denies irregular heart rhythm, Denies palpitations and Denies dyspnea Resp Denies cough, Denies excessive phlegm production and Denies dyspnea GI Denies abdominal pain, Denies bloating, Denies change in bowel habits, Denies constipation, Denies heartburn, Denies diarrhea, Denies nausea and Denies vomiting Denies difficulty urinating and Denies urinary frequency Musc Denies back pain, Denies muscle weakness and Denies numbness Skin/Breast Denies changing lesions and Denies unusual bruising Neuro Denies headache(s), Denies numbness, Denies paresthesias and Denies weakness Psych Denies anxiety and Denies depression Endo Denies palpitations Umesh/Lymph Denies lymphadenopathy Physical Exam Const General: cooperative and no acute distress Nutritional Appearance: well nourished Orientation/consciousness: patient oriented x3 Limitations: no limitations HEENT Head: Yes normocephalic and Yes atraumatic Ears: hearing grossly normal bilaterally Chest Other: Left axilla with 2 areas of previous incision and drainage with no erythema appreciated. There is some chronic inflammation noted with underlying phlegmon. No definite abscess appreciated. Resp Effort & Inspection: normal respiratory effort, no audible wheezes, no cough and no respiratory distress Cardio Jugular venous distension: no JVD GI Inspection: Yes normal to inspection Other: Right Scrotal sac with no palpable cyst, cellulitis or edema appreciated. No evidence of active infection at this time. Neuro General: patient oriented x3 Extrem Other: Bilateral acute axillary hidradenitis is now resolved with only chronic scarring remaining. No open wounds or discharge noted. General: Yes no clubbing, cyanosis or edema Assessment & Plan Assessment & Plan (1) Hydradenitis: Code(s): L73.2 - Hidradenitis suppurativa Category: Medical Plan Patient will continue his follow-up with dermatology. No active infection noted at this time which requires incision and drainage. He will call should a new infection develop to be immediately evaluated. Coding Level of Care Code Est Pt Level 3 (45695) Diagnoses Hydradenitis L73.2
[2024-03-29 11:44] VITALS: BP 114/78; PULSE 99; BMI 34.2
== END 2024-03-29 13:21 | disposition home or self-care (01) ==
PROVIDERS: PCP Internal Medicine; Visit Provider Surgery
DX: L73.2 Hidradenitis suppurativa (principal)
CPT/HCPCS: 99213

== ENCOUNTER → 2024-03-29 11:33 | Outpatient (BNVA) | payer OTHER, SELFPAY | PROVIDERS: PCP Internal Medicine; Visit Provider Surgery | DX: L73.2 Hidradenitis suppurativa (principal) | CPT/HCPCS: 99212 ==

== ENCOUNTER 2024-06-23 09:32 | Outpatient (REF) | payer OTHER, SELFPAY ==
[2024-06-23 11:14] LABS: Alanine Aminotransferase 47 U/L (0-40); Albumin Level 4.7 g/dL (3.5-5.0); Alkaline Phosphatase 41 U/L (39-117); Anion Gap 12 (12-20); Aspartate Amino Transferase 27 U/L (5-37); Bilirubin Total 0.4 mg/dL (0.0-1.0); Blood Urea Nitrogen 13 mg/dL (9-16); Calcium 10.1 mg/dL (8.4-10.2); Carbon Dioxide 26 mmol/L (22-29); Chloride 104 mmol/L (96-108); Cholesterol 171 mg/dL (<200); Estimated Glomerular Filt Rate > 60; Glucose Random 121 mg/dL (60-115); HDL Cholesterol 35 mg/dL (>40); LDL Cholesterol Calculated 112 mg/dL (<100); Potassium 3.7 mmol/L (3.3-5.1); Sodium 138 mmol/L (135-145); Total Protein 8.5 g/dL (6.5-8.0); Triglycerides 122 mg/dL (<150)
[2024-06-26 18:09] LABS: TS Negative Control Passed; TS Panel A 0; TS Panel B 0; TS Positive Control Passed; TSpotTB Negative (Negative)
== END 2024-06-23 09:33 | disposition home or self-care (01) ==
LOC: HO.10HDL 09:32
PROVIDERS: Referring Provider Physician Assistant Medical; Visit Provider Internal Medicine
DX: Z11.1 Encounter for screening for respiratory tuberculosis (principal); B07.9 Viral wart, unspecified; E78.00 Pure hypercholesterolemia, unspecified; G47.33 Obstructive sleep apnea (adult) (pediatric); L73.2 Hidradenitis suppurativa; I10 Essential (primary) hypertension
CPT/HCPCS: 36415; 80053; 80061; 86481

== ENCOUNTER 2024-10-06 11:15 | Outpatient (REF) | payer OTHER, SELFPAY ==
[2024-10-06 14:00] LABS: MANUAL DIFF FLAG NO
[2024-10-06 14:13] LABS: Basophils Absolute Auto 0.1 X10*3/uL (0.0-0.2); Basophils Percent Auto 0.7 % (0-2); Eosinophils Absolute Auto 0.3 X10*3/uL (0.0-0.4); Eosinophils Percent Auto 3.7 % (0-4); Hematocrit 45.4 % (42.0-52.0); Hemoglobin 16.4 g/dl (14.0-18.0); Imm Gran Abs Auto 0.02 X10*3/uL (0.00-0.03); Imm Gran Pct Auto 0.3 % (0.0-0.4); Lymphocytes Absolute Auto 1.9 X10*3/uL (1.2-4.9); Mean Corpuscular HGB Conc 36.1 g/dl (31.0-36.0); Mean Corpuscular Hemoglobin 32.4 pg (27.0-33.0); Mean Corpuscular Volume 89.7 fL (80.0-98.0); Mean Platelet Volume 11.1 fL (9.4-12.4); Monocytes Absolute Auto 0.8 X10*3/uL (0.1-1.2); Monocytes Percent Auto 9.9 % (2-11); Neutrophils Absolute Auto 4.6 x10*3/uL (2.0-8.3); Neutrophils Percent Auto 60.4 % (45-73); Platelet Count 249 X10*3/uL (160-400); Red Blood Count 5.06 X10*6/uL (4.60-5.80); Red Cell Distribution Width 12.2 % (11.0-16.0); White Blood Count 7.6 X10*3/uL (4.8-10.8)
[2024-10-06 14:21] LABS: Alanine Aminotransferase 43 U/L (0-40); Albumin Level 4.4 g/dL (3.5-5.0); Alkaline Phosphatase 35 U/L (39-117); Anion Gap 9 (12-20); Aspartate Amino Transferase 27 U/L (5-37); Bilirubin Total 0.5 mg/dL (0.0-1.0); Blood Urea Nitrogen 16 mg/dL (9-16); Calcium 8.7 mg/dL (8.4-10.2); Carbon Dioxide 26 mmol/L (22-29); Chloride 108 mmol/L (96-108); Cholesterol 136 mg/dL (<200); Estimated Glomerular Filt Rate > 60; Glucose Random 124 mg/dL (60-115); HDL Cholesterol 34 mg/dL (>40); LDL Cholesterol Calculated 71 mg/dL (<100); Potassium 3.6 mmol/L (3.3-5.1); Sodium 139 mmol/L (135-145); Total Protein 7.6 g/dL (6.5-8.0); Triglycerides 159 mg/dL (<150)
[2024-10-06 14:40] LABS: Prostate Specific Antigen Scr 0.27 ng/mL (<0.05-4.0)
[2024-10-09 16:53] LABS: TS Negative Control Passed; TS Panel A 0; TS Panel B 0; TS Positive Control Passed; TSpotTB Negative (Negative)
== END 2024-10-06 11:16 | disposition home or self-care (01) ==
LOC: HO.10HDL 11:15
PROVIDERS: Visit Provider Internal Medicine
DX: E78.00 Pure hypercholesterolemia, unspecified (principal); F17.201 Nicotine dependence, unspecified, in remission; G51.0 Bell's palsy; N40.0 Benign prostatic hyperplasia without lower urinary tract symptoms; R73.01 Impaired fasting glucose; Z12.5 Encounter for screening for malignant neoplasm of prostate
CPT/HCPCS: 36415; 80053; 80061; 84153; 85025; 86481

== ENCOUNTER 2025-02-17 10:55 | Outpatient (REF) | payer OTHER, SELFPAY ==
--- OUTSIDE RECORDS SUMMARY | 2025-02-17 11:28 | XMS_ITS | Encounter Summary ---
Author Organization [employer] Address [address] [place] [address] Care Team Providers Care Traffic Division Commanding Officer Name Role Phone Shaneka Newberry MD Primary Care Provider [phone] Reason for Visit * Reason Onset Date Comments Medication 02/01/2025 Encounter Details Date Type Department Care Team ([facility] Contact Info) Description 02/01/2025 Telephone Orthopedic Surgery - [place] [address] [facility] [address] [place] [address] Dale Marcus, DPAlisha [address] [address] Medication Social History Tobacco Use Types Packs/Day Years Used Date Smoking Tobacco: Every Day Cigarettes Smokeless Tobacco: Never Alcohol Use Standard Drinks/Week Comments Not Currently 0 (1 standard drink = 0.6 oz pur e alcohol) Sex and Gender Information Value Date Recorded Sex Assigned at Male 10/28/2024 9:00 AM EST Legal Sex Male 11:45 PM EST Gender Identity Male 10/28/2024 9:00 AM EST Sexual Orientation Straight 10/28/2024 9: 00 AM EST documented as of this encounter Functional Status * Are you deaf or do you have serious difficulty hearing? Answer Date of Assessment Author No 12/14/2024 5:29 PM Arin Alvarado RN * Are you blind or do you have serious difficulty seeing, even when wearing glasses? Answer Date of Assessment Author No 12/14/2024 5:29 PM Arin Alvarado RN * Do you have serious difficulty walking or climbing stairs? Answer Date of Assessment Author No 12/14/2024 5:29 PM Arin Alvarado RN * Do you have serious difficulty dressing or bathing? Answer Date of Assessment Author No 12/14/2024 5:29 PM Arin Alvarado RN * Because of a physical, mental, or emotional condition, do you have serious difficulty doing errandsalone such as visiting the doctor? Answer Date of Assessment Author No 12/14/2024 5:29 PM Arin Alvarado RN documented as of this encounter Mental Status * Because of a physical, mental, or emotional condition, do you have serious difficulty concentrating, remembering, or making decisions? (5 years old or older) Answer Entry Date Author No 12/14/2024 5:29 PM Arin Alvarado RN documented in this encounter Progress Notes * Nori Flannery - 02/01/2025 11:56 AM EDT Patient is calling stating that Dr Marcus prescribed Clotrimazole Cream ,and he states it does not work. He is inquiring on if a different Medication can be sent. Please advise. He can be reached @ [phone] with any questions. Thanks. documented in this encounter Plan of Treatment Upcoming Encounters Date Type Department Care Team (Late st Contact Info) Description 04/03/2025 1:00 PM EDT Appointment [facility] Endoscopy [address] [place] [id number] Jim Luz MD [address] [facility] [address] [place] [address] 04/05/2025 9:30 AM EDT Office Visit Orthopedic Surgery - [place] [address] [facility] [address] [place] [phone] Dale Marcus DPM [address] [facility] [address] [place] [address] documented as of this encounter Visit Diagnoses Not on filedocumented in this encounter Care Teams Traffic Division Commanding Officer Relationship Specialty Start Date End Date Shaneka Newberry MD [address] [place] [address], [place] PCP - General Internal Medicine 06/13/21 documented as of this encounter
--- OUTSIDE RECORDS SUMMARY | 2025-02-17 11:28 | XMS_ITS | Clinical Summary ---
Author Organization 175 [facility] Address [address] [place] [address] Phone Care Team Providers Care Food Counselor Name Role Phone Shaneka Newberry MD Primary Care Provider [phone] Allergies No known active allergies Medications amitriptyline (ELAVIL) 50 mg tablet Take 50 mg by mouth daily. 10/06/20 19 Active cetirizine (ZyrTEC) 10 mg tablet Take 10 mg by mouth daily. 10/06/20 19 Active cyclobenzaprine (FLEXERIL) 10 mg tablet Take 10 mg by mouth daily. 10/06/20 19 Active hydrOXYzine (VISTARIL) 25 mg/mL injection Take 25 mg by mouth daily. 10/06/20 19 Active montelukast (SINGULAIR) 10 mg tablet Take 10 mg by mouth at bedtime. Active prazosin (MINIPRESS) 1 mg capsule Take 1 mg by mouth at bedtime. Active albuterol HFA (PROAIR HFA ; PROVENTIL HFA ; VENTOLIN HFA) 90 mcg/actuation inhaler Inhale 2 puffs by mouth every 4 (four) hours if needed for wheezing. 18 g 12/15/19 25 Active acetaminophen (TYLENOL 8 HOUR) 650 mg 8 hr tablet TAKE 1 TABLET BY MOUTH 3 TIMES A DAY NEEDED FOR PAIN/FEVER 12/21/19 25 Active Humira,CF, Pen 80 mg/0.8 mL pen 03/04/20 24 Active amLODIPine (NORVASC) 2.5 mg tablet 01/19/20 25 Active amoxicillin (AMOXIL) 500 mg tablet TAKE 1 TABLET EVERY 8 HOURS WITH FOOD UNTIL COMPLETED 08/17/20 24 Active betamethasone dipropionate (DIPROSONE) 0.05 % ointment PLEASE SEE ATTACHED FOR DETAILED DIRECTIONS 06/21/20 24 Active Bimzelx Autoinjector 160 mg/mL auto-injector Inject 320 mg under the skin. 11/10/19 25 Active chlorhexidine (HIBICLENS) 4 % external liquid Wash affected areas daily, only below neck 11/07/19 25 Active chlorhexidine (PERIDEX) 0.12 % solution RINSE MOUTH WITH 15ML (1 CAPFUL) FOR 30 SECONDS IN MORNING AND EVENING AFTER BRUSHING, THEN SPIT 09/22/20 24 Active clindamycin (CLEOCIN) 300 mg capsule Take 1 capsule (300 mg total) by mouth 2 (two) times a day. 07/21/20 24 Active clindamycin (CLEOCIN T) 1 % lotion APPLY TO AFFECTED AREAS DAILY AFTER SHOWER Active doxycycline (VIBRAMYCIN) 100 mg capsule Take 1 capsule (100 mg total) by mouth 2 (two) times a day. 12/17/19 25 Active doxycycline hyclate (VIBRA-TABS) 100 mg tablet Take 1 tablet (100 mg total) by mouth 2 (two) times a day. 04/12/20 24 Active fluticasone propionate (FLONASE) 50 mcg/actuation nasal spray 01/19/20 25 Active ibuprofen (ADVIL,MOTRIN) 600 mg tablet Take 1 tablet (600 mg total) by mouth See administration instructions. every 6 to 8 hours as needed 09/22/20 24 Active ketoconazole (NIZORAL) 2 % cream APPLY TO THE AFFECTED AREAS OF AXILLA TWICE DAILY UNTIL CLEAR, THEN ONCE WEEKLY FOR MAINTENANCE. 06/22/20 24 Active loperamide (IMODIUM) 2 mg capsule ONE TAB AFTER EACH LBM DIRECTED 12/21/19 25 Active LORazepam (ATIVAN) 1 mg tablet TAKE 1 TABLET A HALF HR BEFORE MRI AND ANOTHER IF NEEDED AFTER 30 MINUTES 04/09/20 24 Active losartan-hydroCH LOROthiazide (HYZAAR) 100-25 mg per tablet Take 1 tablet by mouth 1 (one) time each day. 10/24/19 25 Active losartan-hydroCH LOROthiazide (HYZAAR) 100-25 mg per tablet 01/19/20 25 Active metoprolol succinate (TOPROL-XL) 100 mg 24 hr tablet Take 1 tablet (100 mg total) by mouth 1 (one) time each day. 11/29/19 25 Active mirtazapine (REMERON) 30 mg tablet TAKE 1 TABLET BY MOUTH AT BEDTIME FOR DEPRESSION 01/07/20 25 Active naproxen (NAPROSYN) 500 mg tablet Take 1 tablet (500 mg total) by mouth 2 (two) times a day. 08/21/20 24 Active nicotine (NICODERM CQ) 21 mg/24 hr USE 1 PATCH TOPICALLY ONCE DAILY 06/19/20 24 Active omeprazole (PriLOSEC) [address] capsule Take 1 capsule (20 mg total) by mouth 1 (one) time each day. 10/24/19 25 Active oseltamivir (TAMIFLU) 75 mg capsule Take 1 capsule (75 mg total) by mouth 2 (two) times a day. for 5 days 12/21/19 25 Active oxyCODONE (ROXICODONE) 5 mg immediate release tablet TAKE 1 TABLET EVERY 6 HOURS NEEDED FOR BREAKTHROUGH PAIN. 09/22/20 24 Active podofilox (CONDYLOX) 0.5 % external solution APPLY TO WARTS TOPICALLY DAILY AT BEDTIME 06/27/20 24 Active predniSONE (DELTASONE) 20 mg tablet PLEASE SEE ATTACHED FOR DETAILED DIRECTIONS 09/27/20 24 Active rifAMPin (RIFADIN) 300 mg capsule Take 1 capsule (300 mg total) by mouth 2 (two) times a day. 12/20/19 25 Active rosuvastatin (CRESTOR) 40 mg tablet Take 1 tablet (40 mg total) by mouth 1 (one) time each day. 10/24/19 25 Active Cosentyx UnoReady Pen 300 mg/2 mL pen injector 09/02/20 24 Active clotrimazole-bet amethasone (LOTRISONE) 1-0.05 % cream Apply topically 2 (two) times a day for 28 days. 30 g 3 01/31/20 25 025 Active ciclopirox (PENLAC) 8 % solution Apply topically at bedtime. Apply over nail and surrounding skin. Apply daily over previous coat. After seven (7) days, may remove with alcohol and continue cycle. 6.6 mL 3 01/31/20 25 025 Active ciclopirox (LOPROX) 0.77 % gel Apply topically 2 (two) times a day. 45 g 11/09/19 25 025 Encounters Date Type Department Care Team Description 02/01/2025 Telephone Orthopedic Surgery [facility] [address] [facility] [address] [place] [phone] Dale Marcus DPM Medication 01/30/2025 10:00 AM EDT Office Visit Orthopedic Surgery [facility] [address] [facility] [address] [place] [phone] Dale Marcus DPM Dermatophytosis of nail (Primary Dx); Tinea pedis of both feet; Ingrowing nail 01/20/2025 Telephone Gastroenterology [facility] 175 [facility] 175 [facility] [address] [place] [phone] Yash Ritter MD special procedure 12/14/2024 5:21 PM EST - 12/14/2024 5:54 PM EST Emergency [facility] Emergency [address] [place] [phone] Influenza B (Primary Dx) Discharge Disposition: Home or Self Care 12/14/2024 9:00 AM EST Office Visit Orthopedic Surgery [facility] [address] [phone] Dale Marcus DPM Ingrowing nail (Primary Dx); Dermatophytosis of nail; Tinea pedis of both feet from Last 3 Months Surgical History Surgery Date Site/Laterality Comments OTHER SURGICAL HISTORY PROCEDURE: DENIES PREVIOUS SURGERY Medical History Medical History Date Comments Lumbar radiculopathy DX:Lumbar r adiculopathy Sciatica DX:Sciatica Depression with anxiety DX:Depre ssion with anxiety Hyperlipidemia DX:Hyperlipidemi a Bilateral carpal tunnel syndrome DX:Bilateral carpal tunnel syndrome Chronic pain syndrome DX:Chronic pain syndrome Bipolar disorder (CMS/HCC V2 4, CMS/HCC V28) DX:Bipolar disorder (HCC) GERD (gastroesophageal reflux disease) DX:GERD (gastroesophageal reflux disease) Sleep apnea DX:Sleep apnea Social History Tobacco Use Types Packs/Day Years [...] Orientation Straight 10/28/2024 9: 00 AM EST Obstetrics History Last Filed Vital Signs Vital Sign Reading Time Taken Comments Blood Pressure 119/82 12/14/2024 2:36 PM EST Pulse 97 12/14/2024 2:36 PM EST Temperature 39.2 ??C (102.6 ??F) 12/14/2024 2:[address] Respiratory Rate 18 12/14/2024 2:36 PM EST Oxygen Saturation 100% 12/14/2024 2:36 PM EST Inhaled Oxygen Concentration - - Weight 114 kg (252 lb) 01/30/2025 9:48 AM EDT Height 180.3 cm (5' 10.98 ) 01/30/2025 9:48 AM E DT Body Mass Index 35.16 01/30/2025 9:48 AM EDT Plan of Treatment Upcoming Encounters Date Type Department Care Team (Late st Contact Info) Description 04/03/2025 1:00 PM EDT Appointment [facility] Endoscopy [address] [place] [phone] Jim Luz MD [address] [facility] [address] [place] [address] 04/05/2025 9:30 AM EDT Office Visit Orthopedic Surgery - [place] [address] [facility] [address] [place] [phone] Dale Marcus DPM 175 [facility] [address] [place] [address] Health Maintenance Due Date Last Done Comments Hepatitis B Vaccines (1 of 3 - 19+ 3-dose series) 1993 Pneumococcal Vaccine: 50+ Years (1 of 2 - PCV) 1993 Pneumococcal Vaccine: Pediatrics (0 to 5 Years) and At-Risk Patients (6 to 64 Years) (1 of 2 - PCV) 1993 Zoster Vaccines (1 of 2) 1993 Cholesterol Screening (Lipid Panel) 09/14/2022 Colorectal Cancer Screening: Colonoscopy 09/14/2022 Depression Screening 09/14/2022 HIV Screening 09/14/2022 Medicare Annual Wellness Visit 09/14/2022 Social Influencers of Health Screening 09/14/2022 COVID-19 Vaccine ( season) 2024 08/06/2022, 11/13/2021, 09/11/2021, Additional history exists Influenza Vaccine (Season Ended) 2025 DTaP,Tdap,and Td Vaccines (2 - Td or Tdap) 03/17/2034 03/17/2024 Hepatitis C Screening Completed 11/07/2024 HIB Vaccines Aged Out No longer eligi ble based on patient's age to complete this topic HPV Vaccines Aged Out No longer eligi ble based on patient's age to complete this topic Hepatitis A Vaccines Aged Out No long er eligible based on patient's age to complete this topic IPV Vaccines Aged Out No longer eligi ble based on patient's age to complete this topic MMR Vaccines Aged Out No longer eligi ble based on patient's age to complete this topic Meningococcal ACWY Vaccine Aged Out N o longer eligible based on patient's age to complete this topic Meningococcal B Vaccine Aged Out No l onger eligible based on patient's age to complete this topic RSV Immunization Patients Under 20 months Aged Out No longer eligible based on patient's age to complete this topic Varicella Vaccines Aged Out No longer eligible based on patient's age to complete this topic Procedures Procedure Name Priority Date/Time Associated Diagnosis Comments [place] URINE CULTURE TUBE STAT 12/14/2024 4:29 PM EST URINALYSIS WITH REFLEX MICROSCOPIC AND CULTURE STAT 12/14/2024 4:29 PM EST URINALYSIS WITH REFLEX MICROSCOPIC AND CULTURE STAT 12/14/2024 4:29 PM EST CBC WITH AUTO DIFFERENTIAL STAT 12/14/2024 3:01 PM EST LIPASE STAT 12/14/2024 3:01 PM EST COMPREHENSIVE METABOLIC PANEL STAT 12/14/2024 3:01 PM EST CBC AND DIFFERENTIAL STAT 12/14/2024 3:01 PM EST RESPIRATORY VIRUS PANEL MOLECULAR STUDY STAT 12/14/2024 2:43 PM EST from Last 3 Months Results * (ABNORMAL) Urinalysis with reflex microscopic and culture (12/14/2024 4:29 PM EST) Specific [place] Urine 1.023 1.003 - 1.030 LAB URINALYSIS - AUTOMATED METHOD 12/14/2024 4:47 PM [facility] pH, Urine 5.5 5.0 - 8.0 pH LAB URINALYSIS - AUTOMATED METHOD 12/14/2024 4:47 PM [facility] Leukocytes, Urine Negative Negative LAB URINALYSIS - AUTOMATED METHOD 12/14/2024 4:47 PM [facility] Nitrite, Urine Negative Negative LAB URINALYSIS - AUTOMATED METHOD 12/14/2024 4:47 PM [facility] Protein, Urine Negative <=Trace mg/dL LAB URINALYSIS - AUTOMATED METHOD 12/14/2024 4:47 PM [facility] Glucose, Urine Negative Negative mg/dL LAB URINALYSIS - AUTOMATED METHOD 12/14/2024 4:47 PM [facility] Ketones, Urine Negative Negative mg/dL LAB URINALYSIS - AUTOMATED METHOD 12/14/2024 4:47 PM [facility] Urobilinogen, Urine 1.0 0.2 - 1.0 mg/dL LAB URINALYSIS - AUTOMATED METHOD 12/14/2024 4:47 PM [facility] Bilirubin, Urine Negative Negative LAB URINALYSIS - AUTOMATED METHOD 12/14/2024 4:47 PM [facility] Blood, Urine Small(A) Negative LAB URINALYSIS - AUTOMATED METHOD 12/14/2024 4:47 PM [facility] RBC, Urine 3.4 0 - 4 /HPF LAB URINALYSIS - AUTOMATED METHOD 12/14/2024 4:47 PM [facility] WBC, Urine 0.4 0 - 4 /HPF LAB URINALYSIS - AUTOMATED METHOD 12/14/2024 4:47 PM [facility] Squamous Epithelial, Urine 13 0 - 60 /LPF LAB URINALYSIS - AUTOMATED METHOD 12/14/2024 4:47 PM [facility] Bacteria, Urine Negative Negative /HPF LAB URINALYSIS - AUTOMATED METHOD 12/14/2024 4:47 PM [facility] Hyaline Casts, Urine 0.0 0 - 3 /LPF LAB URINALYSIS - AUTOMATED METHOD 12/14/2024 4:47 PM [facility] Urine Urine specimen obtained by clean catch procedure / Unknown Non-blood Collection / Unknown 12/14/2024 4:29 PM EST 12/14/2024 4:37 PM EST [facility] PA LAB URINE ORDERABLES F inal Result Performing Organization Address City/[facility]/ZIP Co de Phone Number [facility] [address] [place] [address], [place] [phone] * [place] urine culture tube (12/14/2024 4:29 PM EST) Extra Tube Hold for add-ons. 12/14/2024 6:01 PM [facility] Comment:Auto resulted. Urine Urine specimen obtained by clean catch procedure / Unknown Non-blood Collection / Unknown 12/14/2024 4:29 PM EST 12/14/2024 4:37 PM EST [facility] PA LAB URINE ORDERABLES F inal Result Performing Organization Address City/[facility]/ZIP Co de Phone Number [facility] [address] [place] [address], [place] [phone] * (ABNORMAL) CBC auto differential (12/14/2024 3:01 PM EST) [facility] WBC 6.4 4.8 - 10.8 K/mcL LAB HEMETOLOGY METHOD 12/14/2024 3:14 PM [facility] RBC 4.70 4.50 - 5.50 M/mcL LAB HEMETOLOGY METHOD 12/14/2024 3:14 PM [facility] Hemoglobin 14.9 13.5 - 17.5 g/dL LAB HEMETOLOGY METHOD 12/14/2024 3:14 PM [facility] Hematocrit 41.9(L) 42.0 - 54.0 % LAB HEMETOLOGY METHOD 12/14/2024 3:14 PM [facility] MCV 89.5 79.0 - 98.0 FL LAB HEMETOLOGY METHOD 12/14/2024 3:14 PM [facility] MCH 31.8 27.0 - 32.0 pcg LAB HEMETOLOGY METHOD 12/14/2024 3:14 PM [facility] MCHC 35.6 32.0 - 37.0 g/dL LAB HEMETOLOGY METHOD 12/14/2024 3:14 PM [facility] RDW 12.1 11.0 - 15.0 % LAB HEMETOLOGY METHOD 12/14/2024 3:14 PM [facility] Platelets 192 130 - 400 K/mcL LAB HEMETOLOGY METHOD 12/14/2024 3:14 PM [facility] MPV 10.9 7.0 - 11.0 FL LAB HEMETOLOGY METHOD 12/14/2024 3:14 PM [facility] NRBC 0.0 <1.0 % LAB HEMETOLOGY METHOD 12/14/2024 3:14 PM [facility] NRBC Absolute 0.00 <0.10 K/mcL LAB HEMETOLOGY METHOD 12/14/2024 3:14 PM [facility] Neutrophils Relative 69.8 % LAB HEMETOLOGY METHOD 12/14/2024 3:14 PM [facility] Lymphocytes Relative 14.2 % LAB HEMETOLOGY METHOD 12/14/2024 3:14 PM [facility] Monocytes Relative 13.8 % LAB HEMETOLOGY METHOD 12/14/2024 3:14 PM [facility] Eosinophils Relative 1.3 % LAB HEMETOLOGY METHOD 12/14/2024 3:14 PM [facility] Basophils Relative 0.6 % LAB HEMETOLOGY METHOD 12/14/2024 3:14 PM [facility] Immature Granulocytes Relative 0.3 % LAB HEMETOLOGY METHOD 12/14/2024 3:14 PM [facility] Neutrophils Absolute 4.46 1.50 - 7.00 K/mcL LAB HEMETOLOGY METHOD 12/14/2024 3:14 PM [facility] Lymphocytes Absolute 0.91(L) 1.00 - 5.00 K/mcL LAB HEMETOLOGY METHOD 12/14/2024 3:14 PM [facility] Monocytes Absolute 0.88 0.20 - 1.00 K/mcL LAB HEMETOLOGY METHOD 12/14/2024 3:14 PM [facility] Eosinophils Absolute 0.08 0.00 - 0.50 K/mcL LAB HEMETOLOGY METHOD 12/14/2024 3:14 PM [facility] Basophils Absolute 0.04 0.00 - 0.20 K/mcL LAB HEMETOLOGY METHOD 12/14/2024 3:14 PM [facility] Immature Granulocytes Absolute 0.02 0.00 - 0.03 K/mcL LAB HEMETOLOGY METHOD 12/14/2024 3:14 PM [facility] Blood Venous blood specimen / Unknown Venipuncture / Unknown 12/14/2024 3:01 PM EST 12/14/2024 3:08 PM EST Lisa WHITTAKER LAB BLOOD ORDERABLES F inal Result Performing Organization Address City/[facility]/ZIP Co de Phone Number [facility] [address] [place] [address], [place] [phone] * Lipase (12/14/2024 3:01 PM EST) Lipase 31 13 - 75 unit/L LAB CHEMISTRY METHOD 12/14/2024 3:32 PM EST [facility] Blood Venous blood specimen / Unknown Venipuncture / Unknown 12/14/2024 3:01 PM EST 12/14/2024 3:08 PM EST Lisa WHITTAKER LAB BLOOD ORDERABLES F inal Result Performing Organization Address City/[facility]/ZIP Co de Phone Number [facility] [address] [place] [address], [place] [phone] * (ABNORMAL) Comprehensive metabolic panel (12/14/2024 3:01 PM EST) Sodium 138 133 - 145 mmol/L LAB CHEMISTRY METHOD 12/14/2024 3:32 PM EST [facility] Potassium 3.5 3.5 - 5.5 mmol/L LAB CHEMISTRY METHOD 12/14/2024 3:32 PM [facility] Chloride 105 96 - 110 mmol/L LAB CHEMISTRY METHOD 12/14/2024 3:32 PM EST [facility] CO2 23 21 - 32 mmol/L LAB CHEMISTRY METHOD 12/14/2024 3:32 PM EST [facility] Anion Gap 10 3 - 11 LAB CHEMISTRY METHOD 12/14/2024 3:32 PM EST [facility] Glucose 111(H) 70 - 100 mg/dL LAB CHEMISTRY METHOD 12/14/2024 3:32 PM [facility] BUN 10 5 - 25 mg/dL LAB CHEMISTRY METHOD 12/14/2024 3:32 PM [facility] Creatinine 1.02 0.70 - 1.30 mg/dL LAB CHEMISTRY METHOD 12/14/2024 3:32 PM [facility] eGFR 90 >=60 mL/min/1. 73m2 LAB CHEMISTRY METHOD 12/14/2024 3:32 PM [facility] Comment:Calculation based on the??Chronic Kidney Disease Epidemiology Collaboration (CKD-EPI) equation refit??without adjustment for race. BUN/Creatinine Ratio 9.8 LAB CHEMISTRY METHOD 12/14/2024 3:32 PM [facility] Calcium 9.1 8.5 - 10.5 mg/dL LAB CHEMISTRY METHOD 12/14/2024 3:32 PM [facility] AST (SGOT) 44(H) 10 - 42 unit/L LAB CHEMISTRY METHOD 12/14/2024 3:32 PM [facility] ALT (SGPT) 51 10 - 60 unit/L LAB CHEMISTRY METHOD 12/14/2024 3:32 PM [facility] Alkaline Phosphatase 34(L) 42 - 121 unit/L LAB CHEMISTRY METHOD 12/14/2024 3:32 PM [facility] Total Protein 7.5 6.0 - 8.0 g/dL LAB CHEMISTRY METHOD 12/14/2024 3:32 PM [facility] Albumin 3.9 3.2 - 5.0 g/dL LAB CHEMISTRY METHOD 12/14/2024 3:32 PM [facility] Total Bilirubin 0.4 0.0 - 1.4 mg/dL LAB CHEMISTRY METHOD 12/14/2024 3:32 PM [facility] Blood Venous blood specimen / Unknown Venipuncture / Unknown 12/14/2024 3:01 PM EST 12/14/2024 3:08 PM EST Lisa WHITTAKER LAB BLOOD ORDERABLES F inal Result [facility] [address] [place] [address], [place] [phone] * (ABNORMAL) Respiratory virus panel molecular study (12/14/2024 2:43 PM EST) Pathologist [facility] Adenovirus Detection by PCR Not Detected Not Detected LAB MICROBIOLOGY METHOD 12/14/2024 4:07 PM EST [facility] Influenza A PCR Not Detected Not Detected LAB MICROBIOLOGY METHOD 12/14/2024 4:07 PM [facility] Influenza B PCR Detected(A ) Not Detected LAB MICROBIOLOGY METHOD 12/14/2024 4:07 PM [facility] Coronavirus 229E Not Detected Not Detected LAB MICROBIOLOGY METHOD 12/14/2024 4:07 PM EST [facility] Coronavirus HKU1 Not Detected Not Detected LAB MICROBIOLOGY METHOD 12/14/2024 4:07 PM EST [facility] Coronavirus OC43 Not Detected Not Detected LAB MICROBIOLOGY METHOD 12/14/2024 4:07 PM [facility] Coronavirus NL63 Not Detected Not Detected LAB MICROBIOLOGY METHOD 12/14/2024 4:07 PM [facility] Parainfluenza Virus 1 Not Detected Not Detected LAB MICROBIOLOGY METHOD 12/14/2024 4:07 PM [facility] Parainfluenza Virus 2 Not Detected Not Detected LAB MICROBIOLOGY METHOD 12/14/2024 4:07 PM [facility] Parainfluenza Virus 3 Not Detected Not Detected LAB MICROBIOLOGY METHOD 12/14/2024 4:07 PM [facility] Parainfluenza Virus 4 Not Detected Not Detected LAB MICROBIOLOGY METHOD 12/14/2024 4:07 PM [facility] RSV PCR Not Detected Not Detected LAB MICROBIOLOGY METHOD 12/14/2024 4:07 PM EST [facility] Human Metapneumovirus A and B Not Detected Not Detected LAB MICROBIOLOGY METHOD 12/14/2024 4:07 PM [facility] Rhinovirus/Entero virus Not Detected Not Detected LAB MICROBIOLOGY METHOD 12/14/2024 4:07 PM [facility] Bordetella pertussis Not Detected Not Detected LAB MICROBIOLOGY METHOD 12/14/2024 4:07 PM EST [facility] Bordetella parapertussis Not Detected Not Detected LAB MICROBIOLOGY METHOD 12/14/2024 4:07 PM [facility] Mycoplasma pneumo by PCR Not Detected Not Detected LAB MICROBIOLOGY METHOD 12/14/2024 4:07 PM [facility] Chlamydia pneumoniae Not Detected Not Detected LAB MICROBIOLOGY METHOD 12/14/2024 4:07 PM [facility] SARS COV-2 Not Detected Not Detected LAB MICROBIOLOGY METHOD 12/14/2024 4:07 PM [facility] Swab Both anterior nares / Unknown Non-blood Collection / Unknown 12/14/2024 2:43 PM EST 12/14/2024 2:54 PM EST [facility] - 12/14/2024 4:07 PM EST Testing was performed using the [employer] Respiratory Pathogen PCR Assay. All results must be correlated with the clinical findings. Results should not be used as the sole basis for diagnosis. False Negative results may occur from the presence of sequence variants in the region targeted by the assay or the presence of inhibitors. Results may be affected by concurrent antiviral/antimicrobial therapy or levels of organisms that are below the limit of detection. Lisa WHITTAKER LAB MICROBIOLOGY - GEN ERAL ORDERABLES Final Result [facility] [address] [place] [address], [place] [phone] from Last 3 Months Insurance [employer] MED[employer] Member Subscriber Plan / Payer (Ef fective 2022-Present) Name:Tyson Platt Relation to Subscriber:Self Name:Tyson Platt Payer ID:[id number] Group ID:[id number] Type:Not on file Address: [place] [address] [address] [id number] Care Teams Food Counselor Relationship Specialty Start Date End Date Shaneka Newberry MD [address] [facility] [address] [place], [place] PCP - General Internal Medicine 06/13/21
[2025-02-17 12:04] LABS: Estimated Average Glucose 117 mg/dL; Hemoglobin A1C 165.8771 umol/L; Hemoglobin A1c % 5.7 % (<6.0); Total Hemoglobin (HGBA1C) 4300.5823 umol/L
[2025-02-17 12:09] LABS: Alanine Aminotransferase 44 U/L (0-40); Albumin Level 4.6 g/dL (3.5-5.0); Alkaline Phosphatase 40 U/L (39-117); Anion Gap 10 (12-20); Aspartate Amino Transferase 30 U/L (5-37); Bilirubin Total 0.3 mg/dL (0.0-1.0); Blood Urea Nitrogen 15 mg/dL (9-16); Calcium 9.9 mg/dL (8.4-10.2); Carbon Dioxide 28 mmol/L (22-29); Chloride 101 mmol/L (96-108); Estimated Glomerular Filt Rate > 60; Glucose Random 124 mg/dL (60-115); Potassium 3.7 mmol/L (3.3-5.1); Sodium 135 mmol/L (135-145)
== END 2025-02-17 10:56 | disposition home or self-care (01) ==
LOC: HO.10HDL 10:55
PROVIDERS: Visit Provider Internal Medicine
DX: Z00.01 Encounter for general adult medical examination with abnormal findings (principal); E66.9 Obesity, unspecified; E78.00 Pure hypercholesterolemia, unspecified; G47.33 Obstructive sleep apnea (adult) (pediatric); I10 Essential (primary) hypertension; L30.0 Nummular dermatitis; R73.01 Impaired fasting glucose; R74.01 Elevation of levels of liver transaminase levels
CPT/HCPCS: 36415; 80053; 83036

== ENCOUNTER 2025-08-11 10:31 | Outpatient (REF) | payer OTHER, SELFPAY ==
--- OUTSIDE RECORDS SUMMARY | 2025-08-11 11:59 | XMS_ITS | Clinical Summary ---
Author Organization [facility] Address [address] [place] [address] Phone Care Team Providers Care Manager Track Name Role Phone Shaneka Newberry MD Primary Care Provider [phone] Allergies No known active allergies Medications amitriptyline (ELAVIL) 50 mg tablet Take 50 mg by mouth daily. 9 Active cetirizine (ZyrTEC) 10 mg tablet Take 10 mg by mouth daily. 9 Active cyclobenzaprine (FLEXERIL) 10 mg tablet Take 10 mg by mouth daily. 9 Active hydrOXYzine (VISTARIL) 25 mg/mL injection Take 25 mg by mouth daily. 9 Active montelukast (SINGULAIR) 10 mg tablet Take 10 mg by mouth at bedtime. Active prazosin (MINIPRESS) 1 mg capsule Take 1 mg by mouth at bedtime. Active albuterol HFA (PROAIR HFA ; PROVENTIL HFA ; VENTOLIN HFA) 90 mcg/actuation inhaler Inhale 2 puffs by mouth every 4 (four) hours if needed for wheezing. 18 g 5 Active Humira,CF, Pen 80 mg/0.8 mL pen 4 Active amLODIPine (NORVASC) 2.5 mg tablet 5 Active amoxicillin (AMOXIL) 500 mg tablet TAKE 1 TABLET EVERY 8 HOURS WITH FOOD UNTIL COMPLETED 4 Active betamethasone dipropionate (DIPROSONE) 0.05 % ointment PLEASE SEE ATTACHED FOR DETAILED DIRECTIONS 4 Active Bimzelx Autoinjector 160 mg/mL auto-injector Inject 320 mg under the skin. 5 Active chlorhexidine (HIBICLENS) 4 % external liquid Wash affected areas daily, only below neck 5 Active chlorhexidine (PERIDEX) 0.12 % solution RINSE MOUTH WITH 15ML (1 CAPFUL) FOR 30 SECONDS IN MORNING AND EVENING AFTER BRUSHING, THEN SPIT 4 Active clindamycin (CLEOCIN) 300 mg capsule Take 1 capsule (300 mg total) by mouth 2 (two) times a day. 4 Active clindamycin (CLEOCIN T) 1 % lotion APPLY TO AFFECTED AREAS DAILY AFTER SHOWER Active doxycycline (VIBRAMYCIN) 100 mg capsule Take 1 capsule (100 mg total) by mouth 2 (two) times a day. 5 Active doxycycline hyclate (VIBRA-TABS) 100 mg tablet Take 1 tablet (100 mg total) by mouth 2 (two) times a day. 4 Active fluticasone propionate (FLONASE) 50 mcg/actuation nasal spray 5 Active ketoconazole (NIZORAL) 2 % cream APPLY TO THE AFFECTED AREAS OF AXILLA TWICE DAILY UNTIL CLEAR, THEN ONCE WEEKLY FOR MAINTENANCE. 4 Active loperamide (IMODIUM) 2 mg capsule ONE TAB AFTER EACH LBM DIRECTED 5 Active losartan-hydroCH LOROthiazide (HYZAAR) 100-25 mg per tablet Take 1 tablet by mouth 1 (one) time each day. 5 Active losartan-hydroCH LOROthiazide (HYZAAR) 100-25 mg per tablet 5 Active metoprolol succinate (TOPROL-XL) 100 mg 24 hr tablet Take 1 tablet (100 mg total) by mouth 1 (one) time each day. 5 Active mirtazapine (REMERON) 30 mg tablet TAKE 1 TABLET BY MOUTH AT BEDTIME FOR DEPRESSION 5 Active nicotine (NICODERM CQ) 21 mg/24 hr USE 1 PATCH TOPICALLY ONCE DAILY 4 Active omeprazole (PriLOSEC) [address] capsule Take 1 capsule (20 mg total) by mouth 1 (one) time each day. 5 Active oseltamivir (TAMIFLU) 75 mg capsule Take 1 capsule (75 mg total) by mouth 2 (two) times a day. for 5 days 5 Active oxyCODONE (ROXICODONE) 5 mg immediate release tablet TAKE 1 TABLET EVERY 6 HOURS NEEDED FOR BREAKTHROUGH PAIN. 4 Active podofilox (CONDYLOX) 0.5 % external solution APPLY TO WARTS TOPICALLY DAILY AT BEDTIME 4 Active predniSONE (DELTASONE) 20 mg tablet PLEASE SEE ATTACHED FOR DETAILED DIRECTIONS 4 Active rifAMPin (RIFADIN) 300 mg capsule Take 1 capsule (300 mg total) by mouth 2 (two) times a day. 5 Active rosuvastatin (CRESTOR) 40 mg tablet Take 1 tablet (40 mg total) by mouth 1 (one) time each day. 5 Active Cosentyx UnoReady Pen 300 mg/2 mL pen injector 4 Active polyethylene glycol (Golytely) 236-22.74-6.74 -5.86 gram solution Take 4L by mouth once for one dose. May substitue any PEG. Starting at 6PM the night before your procedure drink 1 8oz glasses at your own pace until you complete half of the gallon. Finish 2nd half of the gallon 5 hours before your procedure. 4000 mL 5 Active bisacodyL (DULCOLAX) 5 mg EC tablet Take 2 tablets by mouth right before beginning bowel prep. See instructions provided by the office 2 tablet 5 Active loratadine (CLARITIN) 10 mg tablet Take 1 tablet (10 mg total) by mouth 1 (one) time each day. 5 Active sertraline (ZOLOFT) 100 mg tablet Take 1 tablet (100 mg total) by mouth 1 (one) time each day. 5 Active traZODone (DESYREL) 100 mg tablet take 2 tablet by mouth every night at bedtime 5 Active Encounters Date Type Department Care Team Description 06/22/2025 3:41 PM EDT - 06/22/2025 5:15 PM EDT Emergency [facility] Emergency [address] [place] [address] Abscess of left buttock (Primary Dx) Discharge Disposition: Home or Self Care from Last 3 Months Surgical History Surgery Date Site/Laterality Comments NASAL SEPTUM SURGERY Medical History Medical History Date Comments Lumbar radiculopathy DX:Lumbar r adiculopathy Sciatica DX:Sciatica Depression with anxiety DX:Depre ssion with anxiety Hyperlipidemia DX:Hyperlipidemi a Bilateral carpal tunnel syndrome DX:Bilateral carpal tunnel syndrome Chronic pain syndrome DX:Chronic pain syndrome Bipolar disorder (CMS/HCC V2 4, CMS/HCC V28) DX:Bipolar disorder (HCC) GERD (gastroesophageal reflux disease) DX:GERD (gastroesophageal reflux disease) Sleep apnea DX:Sleep apnea Family History Medical History Relation Name Comments Colon cancer Father's Brother Relation Name Status Comments Father's Brother Social History Tobacco Use Types Packs/Day Years Used Date Smoking Tobacco: Every Day Cigarettes Smokeless Tobacco: Never Alcohol Use Standard Drinks/Week Comments Yes 0 (1 standard drink = 0.6 oz pur e alcohol) Interpersonal Safety Answer Date Record ed Physical Abuse Unrecognized value 04/03/2025 Verbal Abuse Unrecognized value 04/03/2025 Sex and Gender Information Value Date Recorded Sex Assigned at Male 10/28/2024 9:00 AM EST Legal Sex Male 11:45 PM EST Gender Identity Male 10/28/2024 9:00 AM EST Sexual Orientation Straight 10/28/2024 9: 00 AM EST Obstetrics History Last Filed Vital Signs Vital Sign Reading Time Taken Comments Blood Pressure 115/84 06/22/2025 2:32 PM EDT Pulse 97 06/22/2025 2:32 PM EDT Temperature 36.9 C (98.4 F) 06/22/2025 2:32 PM EDT Respiratory Rate 18 05/06/2025 12:06 PM EDT Oxygen Saturation 96% 06/22/2025 2:32 PM EDT Inhaled Oxygen Concentration - - Weight 113 kg (250 lb) 06/22/2025 2:32 PM EDT Height 180.3 cm (5' 11 ) 06/22/2025 2:32 PM EDT Body Mass Index 34.87 06/22/2025 2:32 PM EDT Plan of Treatment Health Maintenance Due Date Last Done Comments Hepatitis B Vaccines (1 of 3 - 19+ 3-dose series) 1993 Pneumococcal Vaccine: 50+ Years (1 of 2 - PCV) 1993 Zoster Vaccines (1 of 2) 1993 Cholesterol Screening (Lipid Panel) 09/14/2022 HIV Screening 09/14/2022 Medicare Annual Wellness Visit 09/14/2022 Social Influencers of Health Screening 09/14/2022 Depression Screening 10/12/2024 COVID-19 Vaccine ( season) 2025 08/06/2022, 11/13/2021, 09/11/2021, Additional history exists Influenza Vaccine (#1) 2025 DTaP,Tdap,and Td Vaccines (2 - Td or Tdap) 03/17/2034 03/17/2024 Colorectal Cancer Screening: Colonoscopy 04/03/2035 04/03/2025 Hepatitis C Screening Completed 11/07/2024 RSV Immunization Adult Patients Completed 04/19/2025 HIB Vaccines Aged Out No longer eligi [...] Procedure Name Priority Date/Time Associated Diagnosis Comments COLONOSCOPY Routine 04/03/2025 1:28 PM EDT Hx of colonic polyps from Last 3 Months or Most Recently Relevant to Health Maintenance Results * COLONOSCOPY Anesthesia - MAC; [facility] ENDOSCOPY (04/03/2025 1:28 PM EDT) Anatomical Region Laterality Modality Endoscopy 04/03/2025 1:08 PM EDT Impressions 04/03/2025 1:29 PM EDT - One 15 mm polyp at the ileocecal valve. Biopsied. - The examined portion of the ileum was normal. Recommendation: - Await pathology results. - Repeat colonoscopy for surveillance based on pathology results. - May need repeat colonoscopy or surgery if ICV biopsies are ademona. Narrative 04/03/2025 1:29 PM EDT [facility] GI Patient Name: Tyson Hernandez Procedure Date: 04/03/2025 1:08 PM Date of : 1975 Age: 50 Room: ROOM 15 Gender: Male Note Status: Finalized Attending MD: Jim Luz MD, Procedure Date No Time: 04/03/2025 Procedure: Colonoscopy Indications: High risk colon cancer surveillance: Personal history of colonic polyps Providers: Jim Luz MD Referring MD: Jim Luz MD Medicines: Propofol per Anesthesia Complications: No immediate complications. Estimated Blood Loss: Estimated blood loss: none. Procedure: Pre-Anesthesia Assessment: - ASA Grade Assessment: II - A patient with mild systemic disease. - After reviewing the risks and benefits, the patient was deemed in satisfactory condition to undergo the procedure. After I obtained informed consent, the scope was passed under direct vision. Throughout the procedure, the patient's blood pressure, pulse, and oxygen saturations were monitored continuously.The Colonoscope was introduced through the anus and advanced to 6 cm into the ileum. The colonoscopy was performed without difficulty. The patient tolerated the procedure well. The quality of the bowel preparation was good. Findings: The perianal and digital rectal examinations were normal. A 15 mm polyp was found in the ileocecal valve. The polyp was sessile. Biopsies were taken with a cold forceps for histology. Unclear if the ICV nodularity is adenoma or normal ileal mucosa, so it was biopsids. May need surgery if adenoma is found. The terminal ileum appeared normal. Procedure Code(s): --- Professional --- 08802, Colonoscopy, flexible; with biopsy, single or multiple Diagnosis Code(s): --- Professional --- Z86.010, Personal history of colonic polyps D12.0, Benign neoplasm of cecum CPT copyright 2020 [employer]. All rights reserved. The codes documented in this report are preliminary and upon western felt hat blocker review may be revised to meet current compliance requirements. Jim Luz MD 04/03/2025 1:29:49 PM This report has been signed electronically.Jmi Luz MD Number of Addenda: 0 Note Initiated On: 04/03/2025 1:08 PM Scope In: Scope Out: Endoscopy Department at [facility] - [address] [place] [id number] Procedure Note Jim Luz MD - 04/03/2025 [facility] GI Patient Name: Tyson Hrenandez Procedure Date: 04/03/2025 1:08 PM Date of : 1975 Age: 50 Room: ROOM 15 Gender: Male Note Status: Finalized Attending MD: Jim Luz MD, Procedure Date No Time: 04/03/2025 Procedure: Colonoscopy Indications: High risk colon cancer surveillance: Personalhistory of colonic polyps Providers: Jim Luz MD Referring MD: Jim Luz MD Medicines: Propofol per Anesthesia Complications: No immediate complications. Estimated Blood Loss: Estimated blood loss: none. Procedure: Pre-Anesthesia Assessment: - ASA Grade Assessment: II - A patient with mild systemic disease. - After reviewing the risks and benefits, thepatient was deemed in satisfactory condition to undergo the procedure. After I obtained informed consent, the scope was passed under direct vision. Throughout theprocedure, the patient's blood pressure, pulse, and oxygen saturations were monitored continuously.The Colonoscope was introduced through the anus and advanced to 6 cm into the ileum. The colonoscopywas performed without difficulty. The patient tolerated the procedure well. The quality of the bowel preparation was good. Findings: The perianal and digital rectal examinations were normal. A 15 mm polyp was found in the ileocecal valve. The polyp was sessile. Biopsies were taken with a cold forceps for histology. Unclear if the ICVnodularity is adenoma or normal ileal mucosa, so it wasbiopsids. May need surgery if adenoma is found. The terminal ileum appeared normal. Procedure Code(s): --- Professional --- 63393, Colonoscopy, flexible; with biopsy, singleor multiple Diagnosis Code(s): --- Professional --- Z86.010, Personal history of colonic polyps D12.0, Benign neoplasm of cecum CPT copyright 2020 [employer]. All rights reserved. The codes documented in this report are preliminary and upon western felt hat blocker reviewmay be revised to meet current compliance requirements. Jim Luz MD 04/03/2025 1:29:49 PM This report has been signed electronically.Jim Luz MD Number of Addenda: 0 Note Initiated On: 04/03/2025 1:08 PM Scope In: Scope Out: Endoscopy Department at [facility] - [address] [place] [id number] IMPRESSION: - One 15 mm polyp at the ileocecal valve. Biopsied. - The examined portion of the ileum was normal. Recommendation: - Await pathology results. - Repeat colonoscopy for surveillance based on pathology results. - May need repeat colonoscopy or surgery if ICV biopsies are ademona. Jim Luz MD GI~PROCEDURE ORDERABLES Fin al Result from Last 3 Months or Most Recently Relevant to Health Maintenance Insurance [facility] MEDICARE Member Subscriber Plan / Payer (Ef fective 2022-Present) Name:TYSON HERNANDEZ Relation to Subscriber:Self Name:Tyson Hernandez Payer ID:[id number] Group ID:[id number] Type:Not on file Address: [place] [facility] [place] [address] Care Teams Manager Track Relationship Specialty Start Date End Date Shaneka Newberry MD [address] [place], [place] PCP - General Internal Medicine 06/13/21
--- OUTSIDE RECORDS SUMMARY | 2025-08-11 11:59 | XMS_ITS | Encounter Summary ---
Author Organization [facility] Address [address] [place] [phone] Phone Care Team Providers Care Director Of Family Service Center Name Role Phone Shaneka Newberry MD Primary Care Provider Encounter Details Date Type Department Care Team (Late Contact Info) Description 07/26/2025 Orders Only [facility] [address] [place] [phone] Keena Garrison MD [address] [place] [phone] [email or web address] Hidradenitis suppurativa (Primary Dx); High risk medication use Social History Tobacco Use Types Packs/Day Years Used Date Smoking Tobacco: Never Assessed Education Answer Date Recorded Are you interested in more education? Not on rohith e 08/10/2024 Are you concerned about learning? Not on file 08/10/2024 No 08/10/2024 No 08/10/2024 Digital Access Answer Date Recorded No 08/10/2024 No 08/10/2024 Reliable internet access at home? Not on file 08/10/2024 Device with a working camera? Not on file Sex and Gender Information Value Date Recorded Sex Assigned at Not on file Legal Sex Male 12:11 PM EDT Gender Identity Not on file Sexual Orientation Not on file documented as of this encounter Plan of Treatment Upcoming Encounters Date Type Department Care Team (Late Contact Info) Description 08/18/2025 12:45 PM EST Telemedicine [facility] at [address] [address] Keena Garrison MD [address] [place] [address] [email or web address] Scheduled Orders Name Type Priority Associated Diagnoses Orde r Schedule Lipid panel Lab Routine Hidradenitis suppurativa High risk medication use Expected: 07/26/2025, Expires: 07/26/2026 documented as of this encounter Visit Diagnoses Diagnosis Hidradenitis suppurativa- Primary Hidradenitis High risk medication use documented in this encounter Care Teams Director Of Family Service Center Relationship Specialty Start Date End Date Shaneka Newberry MD [address] [place] [address] [place] [address] PCP - General Internal Medicine 06/21/24 documented as of this encounter Additional Source Comments The information contained in this document represents components of the legal health record. It is not the complete legal health record.[facility]
--- OUTSIDE RECORDS SUMMARY | 2025-08-11 11:59 | XMS_ITS | Clinical Summary ---
Author Organization [facility] Address [address] [place] [address] Phone Care Team Providers Care New Car Sales Manager Name Role Phone Shaneka Newberry MD Primary Care Provider Allergies No known active allergies Medications chlorhexidine (HIBICLENS) 4 % external liquid Wash affected areas daily, only below neck 118 mL 11 5 Active clindamycin (CLEOCIN T) 1 % lotion Apply to affected areas daily after shower 60 mL 11 5 Active bimekizumab-bkz x (BIMZELX AUTOINJECTOR) 160 mg/mL AtInIndications :Hidradenitis suppurativa Inject 320 mg under the skin as directed. Inject 320 mg once every 2 weeks for the first 16 weeks (9 doses), and then every 4 weeks thereafter. 4 mL 5 5 Active amoxicillin-cla vulanate (AUGMENTIN) 875-125 mg per tabletIndicatio ns:Hidradenitis suppurativa Gema 1 pastilla 2 veces al lowell para la inflamacion por 7 dalal 14 tablet 5 Active Medication-Free Text Hepatitis B Vaccine Series- three-dose series on a 0, 1, and 6-month schedule 3 injection 5 Active clindamycin (CLEOCIN) 300 MG capsuleIndicati ons:Hidradeniti s suppurativa Take 1 capsule (300 mg total) by mouth 2 (two) times a day. For 10 weeks 140 capsule 5 Active lidocaine-prilo álvaro (EMLA) creamIndication s:Hidradenitis suppurativa Apply topically once for 1 dose. 2hours before dermatology procedures. Cover with gauze or saran wrap 30 g 025 amoxicillin-cla vulanate (AUGMENTIN) 875-125 mg per tabletIndicatio ns:Hidradenitis suppurativa Take 1 tablet (875 mg of amoxicillin total) by mouth 2 (two) times a day for 7 days. 14 tablet 025 Active Problems No known active problems Encounters Date Type Department Care Team Description 07/26/2025 Orders Only [facility] [address] [facility] [address] [place] [address] Keena Garrison MD Hidradenitis suppurativa (Primary Dx); High risk medication use 07/21/2025 8:15 AM EDT - 07/21/2025 11:59 PM EDT Hospital Encounter [facility] [address] [place] [address] Keena Garrison MD Discharge Disposition: Home or Self Care 07/21/2025 7:30 AM EDT Office Visit [facility] at [address] [address] Keena Garrison MD Hidradenitis suppurativa (Primary Dx); High risk medication use from Last 3 Months Social History Tobacco Use Types Packs/Day Years [...] on file Sexual Orientation Not on file Plan of Treatment Upcoming Encounters Date Type Department Care Team ([facility] st Contact Info) Description 08/18/2025 12:45 PM EST Telemedicine [facility] at [address] [facility] [address] [place] [phone] Keena Garrison MD [address] [place] [address] [email or web address] Maintenance Due Date Last Done Comments DEPRESSION SCREENING 1986 SMOKING Hx and SMOKELESS TOBACCO SCREENING 1987 HIV ONE-TIME SCREENING (18-65 YEARS) 01/09/1992 COLOGUARD 2019 COLONOSCOPY 2019 COLORECTAL CANCER SCREENING 2019 FIT TEST 2019 FOBT 2019 SIGMOIDOSCOPY 2019 VIRTUAL COLONOSCOPY 2019 PNEUMOCOCCAL VACCINES (50+ years) (1 of 1 - PCV) 01/09/2024 ZOSTER VACCINES (1 of 2) 01/09/2024 INFLUENZA VACCINE (#1) 2025 COVID-19 VACCINE ( season) 2025 08/06/2022, 11/13/2021, 09/11/2021, Additional history exists LIPID PANEL 07/21/2030 07/21/2025, 07/21/2025 Adult Td,Tdap Booster 03/17/2034 03/17/2024 HEPATITIS C SCREENING Completed 11/07/2024 RSV VACCINE Completed 04/19/2025 HEPATITIS A VACCINES Aged Out No long er eligible based on patient's age to complete this topic HIB VACCINES Aged Out No longer eligi ble based on patient's age to complete this topic MENINGOCOCCAL VACCINES (ACWY) Aged Out No longer eligible based on patient's age to complete this topic MENINGOCOCCAL VACCINES (B) Aged Out N o longer eligible based on patient's age to complete this topic Medical Devices Not on file Procedures Procedure Name Priority Date/Time Associated Diagnosis Comments VLDL (DIRECT) Routine 07/21/2025 8:16 AM EDT DIRECT LDL Routine 07/21/2025 8:16 AM EDT CBC AND DIFFERENTIAL Routine 07/21/2025 8:16 AM EDT High risk medication use LFTS (HEPATIC PANEL) Routine 07/21/2025 8:16 AM EDT High risk medication use LIPID PANEL Routine 07/21/2025 8:16 AM EDT High risk medication use HEPATITIS C ANTIBODY, QUALITATIVE Routine 11/07/2024 3:06 PM EST Need for hepatitis C screening test from Last 3 Months or Most Recently Relevant to Health Maintenance Results * (ABNORMAL) VLDL (Direct) (07/21/2025 8:16 AM EDT) VLDL 61(H) <31 mg/dL [facility] 07/21/2025 8:16 AM EDT 07/21/2025 8:23 AM EDT Keena Garrison MD LAB BLOOD ORDERABLES Final Result Performing Organization Address [facility] Co de Phone Number [facility] [address] [place] [phone] * DIRECT LDL (07/21/2025 8:16 AM EDT) LDL Chol (Direct) 75 50 - 129 mg/dL [facility] Comment: 07/21/2025 8:16 AM EDT 07/21/2025 8:23 AM EDT Keena Garrison MD LAB BLOOD ORDERABLES Final Result Performing Organization Address [facility] Co de Phone Number [facility] [address] [place] [phone] * LFTs (hepatic panel) (07/21/2025 8:16 AM EDT) TOTAL PROTEIN 7.6 6.4 - 8.3 g/dL [facility] [employer] ALBUMIN 4.4 3.5 - 5.2 g/dL [facility] GLOBULIN 3.2 2.2 - 4.2 g/dL [facility] AST 23 10 - 50 U/L [facility] ALT 34 10 - 50 U/L [facility] ALKALINE PHOSPHATASE 51 35 - 130 U/L [facility] TOTAL BILIRUBIN 0.2 0.0 - 1.0 mg/dL [facility] DIRECT BILIRUBIN <0.2 0.0 - 0.3 mg/dL [facility] 07/21/2025 8:16 AM EDT 07/21/2025 8:23 AM EDT us Keena Garrison MD LAB BLOOD ORDERABLES Final Result [facility] [address] [place] [address] * (ABNORMAL) CBC and differential (07/21/2025 8:16 AM EDT) WBC 11.59(H) 4.00 - 11.00 K/uL [facility] RBC 5.10 4.50 - 5.90 M/uL [facility] HGB 16.3 13.5 - 17.5 g/dL [facility] HCT 46.3 41.0 - 53.0 % [facility] PLT 259 150 - 450 K/uL [facility] MCV 90.8 80.0 - 100.0 fL [facility] MCH 32.0(H) 27.0 - 31.0 pg [facility] MCHC 35.2 32.0 - 36.0 g/dL [facility] RDW 11.9 11.5 - 14.5 % [facility] MPV 11.3 8.4 - 12.0 fL [facility] NRBC 0.00 0.00 /100 WBCs [facility] ABSOLUTE NRBC 0.00 0.00 K/uL [facility] DIFF METHOD Auto [facility] NEUTS 55.1 48.0 - 76.0 % [facility] LYMPHS 29.9 18.0 - 41.0 % [facility] MONOS 11.2(H) 4.0 - 11.0 % [facility] EOS 3.0 0.0 - 5.0 % [facility] BASOS 0.5 0.0 - 1.5 % [facility] % IMMATURE GRANS 0.3 0.0 - 0.9 % [facility] ABSOLUTE NEUTS 6.38 1.92 - 7.60 K/uL [facility] Comment:1.21-5.39 cells/KL i s the reference range for individuals with the Colon null phenotype ABSOLUTE LYMPHS 3.47 0.72 - 4.10 K/uL [facility] ABSOLUTE MONOS 1.30(H) 0.16 - 1.10 K/uL [facility] ABSOLUTE EOS 0.35 0.00 - 0.50 K/uL [facility] ABSOLUTE BASOS 0.06 0.00 - 0.15 K/uL [facility] ABS IMMATURE GRANS 0.03 0.00 - 0.09 K/uL [facility] ABSOLUTE NEUTROPHIL COUNT 6.38 1.92 - 7.60 K/uL [facility] Comment: Automated cell count. Manual ANC may differ if performed. 1.21-5.39 cells/KL is the reference range for individuals with the Colon null phenotype Blood 07/21/2025 8:16 AM EDT 07/21/2025 8:23 AM EDT us Keena Garrison MD LAB BLOOD ORDERABLES Final Result [facility] [address] [place] [address] * (ABNORMAL) Lipid panel (07/21/2025 8:16 AM EDT) CHOLESTEROL 163 100 - 199 mg/dL [facility] TRIGLYCERIDES 501(H) 35 - 150 mg/dL [facility] HDL 27(L) 40 - 80 mg/dL [facility] CALCULATED LDL NOT CALCULATED 50 - 129 mg/dL [facility] CARDIAC RISK RATIO 6.0(H) 0.0 - 4.0 [facility] 07/21/2025 8:16 AM EDT 07/21/2025 8:23 AM EDT Keena Garrison MD LAB BLOOD ORDERABLES Final Result Performing Organization Address [facility] Co de Phone Number [facility] [address] [place] [address] * Hepatitis C antibody, qualitative (11/07/2024 3:06 PM EST) HCV Nonreactive Nonreactive [facility] Blood 11/07/2024 3:06 PM EST 11/07/2024 3:07 PM EST Danika Salazar MD, [facility] LAB BLOOD ORD ERABLES Final Result [facility] [address] [place] [phone] from Last 3 Months or Most Recently Relevant to Health Maintenance [place] [address] [place] [address] MEDICARE [address]PLACEMENT [address] [place] [address] [place] [address] MEDICARE REPLACEMENT CARE MEDICARE REPLACEMENT CARE MEDICARE REPLACEMENT Care Teams New Car Sales Manager Relationship Specialty Start Date End Date Shaneka Newberry MD [address] [place] [address] [place] [phone] PCP - General Internal Medicine 06/21/24 Additional Source Comments The information contained in this document represents components of the legal health record. It is not the complete legal health record.[facility]
[2025-08-11 12:08] LABS: Cholesterol 171 mg/dL (<200); HDL Cholesterol 36 mg/dL (>40); Triglycerides 103 mg/dL (<150)
== END 2025-08-11 10:32 | disposition home or self-care (01) ==
LOC: HO.LAB 10:31
PROVIDERS: PCP Internal Medicine; Visit Provider Student in an Organized Health Care Education/Training Program
DX: L73.2 Hidradenitis suppurativa (principal); Z79.899 Other long term (current) drug therapy
CPT/HCPCS: 36415; 80061